=== PATIENT | male | born 1975 | race African-American/Black ===

== ENCOUNTER 2016-11-28 07:54 | Observation (INO) | payer OTHER ==
[2016-11-28 08:21] VITALS: BMI 20.9
[2016-11-28] MEDS ORDERED: SODIUM CHLORIDE 1,000 ML IV STA (09:35)
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
[2016-11-28] MEDS ORDERED: FOLIC ACID INJECTION - 1 MG, THIAMINE HCL 100 MG, MULTIVIT INJECTION ADULT 10 ML in SOD... IVPB ONE (09:56)
[2016-11-28 10:18] LABS: BASOPHIL 0.4 % (0-2.0); EOSINOPHIL 2.7 % (0-4.5); MCHC 32.6 g/dl (32.0-35.9); MEAN CELL VOLUME 82.7 fl (80-96); MEAN PLT VOLUME 7.9 fl (7.5-11.1); NEUTROPHILS 66.5 % (42.8-82.8); PLATELET COUNT 219 K/MM3 (134-434); RDW 19.4 % (11.9-15.9); WHITE BLOOD COUNT 5.8 K/mm3 (4.0-10.0)
[2016-11-28 10:35] LABS: ALBUMIN 3.3 g/dl (3.4-5.0); ANION GAP 8 (8-16); BILIRUBIN,TOTAL 0.2 mg/dL (0.2-1.0); CALCIUM 8.9 mg/dL (8.5-10.1); CO2 31 mmol/L (21-32); COCKROFT - GAULT 116.99; CREATININE 0.7 mg/dL (0.7-1.3); GLUCOSE,RANDOM 88 mg/dL (74-106); SGOT/AST 12 U/L (15-37); SGPT/ALT 22 U/L (12-78); TOT PROT 7.1 g/dl (6.4-8.2)
[2016-11-28 10:36] LABS: ALK PHOS 104 U/L (45-117)
[2016-11-28 11:42] LABS: URINE MARIJUANA THC POSITIVE ng/ml (CUTOFF=50)
[2016-11-28] MEDS ORDERED: chlordiazePOXIDE HCL 25 MG CAPSULE PO ONE (11:45)
[2016-11-28] MEDS ORDERED: chlordiazePOXIDE HCL 25 MG CAPSULE ONE (11:54)
--- NOTE | 2016-11-28 18:45 | HP ---
Admitting History and Physical - Primary Care Physician PCP: Kody Rodrigues - Admission History of Present Illness: 41 year old male with past medical history of ETOH abuse, polysubstance abuse with multiple detox admissions, schizoaffective, presents to the emergency department with a complaint of difficulty ambulating secondary to feet pain starting earlier this morning. Patient was able to get to the bus stop this morning although states it was very difficult and needed assistance from people. He reports a loss of strength in his legs however denies pain in his legs. Patient reports this has happened before in the past 6 months ago when he had an ankle fracture surgery. Denies any recent trauma. He reports some numbness or tingling in his feet. Denies radiating pain into his legs or back. Denies history of heart disease , lung disease and blood disorder. pt was admitted at [facility] he left there - Smoking History Smoking history: Current every day smoker Have you smoked in the past 12 months: Yes Aproximately how many cigarettes per day: 20 - Alcohol/Substance Use Hx Alcohol Use: Yes (SOCIAL) Home Medications - Allergies Allergies/Adverse Reactions: Allergies Allergy/AdvReac Type Severity Reaction Status Date / Time sulfamethoxazole Allergy Severe Swelling Verified 11/28/16 08:15 [From Bactrim] trimethoprim [From Bactrim] Allergy Severe Swelling Verified 11/28/16 08:15 chocolate flavor Allergy Intermediate Rash Verified 11/28/16 08:15 iodine [Iodine] Allergy Unknown UNSPECIFIED Verified 11/28/16 08:15 ALLERGY paroxetine [Paroxetine] Allergy Unknown UNSPECIFIED Verified 11/28/16 08:15 ALLERGY penicillin V [Penicillin V] Allergy Unknown Swelling Verified 11/28/16 08:15 - Home Medications Home Medications: Ambulatory Orders Citalopram Hydrobromide [Celexa -] 20 mg PO DAILY #30 tablet 11/23/16 Perphenazine [Trilafon] 8 mg PO BID #60 tablet 11/23/16 Family Disease History - Family Disease History Family Disease History: Diabetes: Grandparent (HTN.), Sister (one leg amputation ,; Other - Lupus.), Heart Disease: Grandparent, Other: Father ( ALCOHOL; .), Mother (ALCOHOL), Brother (1 - ; Gunshot.), Sister Physical Examination Vital Signs: Vital Signs Temperature 98.8 F 11/28/16 17:42 Pulse Rate 74 11/28/16 17:42 Respiratory Rate 18 11/28/16 17:42 Blood Pressure 128/70 11/28/16 17:42 O2 Sat by Pulse Oximetry (%) 94 L 11/28/16 17:42 Constitutional: Yes: No Distress Neck: Yes: Supple Cardiovascular: Yes: Regular Rate and Rhythm Respiratory: Yes: CTA Bilaterally Gastrointestinal: Yes: Normal Bowel Sounds Extremities: Yes: WNL, Other (feet no redness or swelling) Neurological: Yes: Alert, Oriented Problem List - Problems (1) Left foot pain Assessment/Plan: seems like arthritis will get xray prn tylenol Code(s): M79.672 - PAIN IN LEFT FOOT (2) Advised to contact social work specialist Code(s): [id number] - (3) Alcohol dependence with uncomplicated withdrawal Assessment/Plan: prn ativan/librium Code(s): F10.230 - ALCOHOL DEPENDENCE WITH WITHDRAWAL, UNCOMPLICATED (4) Cocaine dependence Code(s): F14.20 - COCAINE DEPENDENCE, UNCOMPLICATED Qualifiers: Substance use status: uncomplicated Qualified Code(s): F14.20 - Cocaine dependence, uncomplicated (5) Substance induced mood disorder Assessment/Plan: dr meenu holland consult for detox Code(s): F19.94 - OTH PSYCHOACTIVE SUBSTANCE USE, UNSP W MOOD DISORDER (6) Asthma Code(s): J45.909 - UNSPECIFIED ASTHMA, UNCOMPLICATED Qualifiers: Asthma severity: mild intermittent Asthma complication type: uncomplicated Qualified Code(s): J45.20 - Mild intermittent asthma, uncomplicated (7) Marijuana dependence Code(s): F12.20 - CANNABIS DEPENDENCE, UNCOMPLICATED Assessment/Plan Laboratory Tests 11/28/16 11/28/16 11/28/16 09:46 09:46 09:46 WBC 5.8 D RBC 3.54 L Hgb 9.6 L D Hct 29.3 L D MCV 82.7 MCHC 32.6 RDW 19.4 H Plt Count 219 MPV 7.9 D Neutrophils % 66.5 Lymphocytes % 20.7 Monocytes % 9.7 Eosinophils % 2.7 Basophils % 0.4 Retic Count 1.53 H Sodium 143 Potassium 4.4 D Chloride 104 Carbon Dioxide 31 Anion Gap 8 BUN 16 Creatinine 0.7 Creat Clearance w eGFR > 60 Random Glucose 88 Calcium 8.9 Magnesium 2.2 Total Bilirubin 0.2 D AST 12 L D ALT 22 D Alkaline Phosphatase 104 Total Protein 7.1 Albumin 3.3 L Opiates Screen Methadone Screen Barbiturate Screen Phencyclidine Screen Ur Amphetamines Screen MDMA (Ecstasy) Screen Benzodiazepines Screen Cocaine Screen U Marijuana (THC) Screen Alcohol, Quantitative 11/28/16 11/28/16 11:18 11:18 WBC RBC Hgb Hct MCV MCHC RDW Plt Count MPV Neutrophils % Lymphocytes % Monocytes % Eosinophils % Basophils % Retic Count Sodium Potassium Chloride Carbon Dioxide Anion Gap BUN Creatinine Creat Clearance w eGFR Random Glucose Calcium Magnesium Total Bilirubin AST ALT Alkaline Phosphatase Total Protein Albumin Opiates Screen Negative Methadone Screen Negative Barbiturate Screen Negative Phencyclidine Screen Positive Ur Amphetamines Screen Negative MDMA (Ecstasy) Screen Negative Benzodiazepines Screen Positive Cocaine Screen Negative U Marijuana (THC) Screen Positive Alcohol, Quantitative < 5.0
[2016-11-28] MEDS ORDERED: LORAZEPAM CARPU-JECT 2 MG/ML DISP.SYRIN IM PRN (20:43)
[2016-11-28] MEDS: HEPARIN NA (PORCINE) 5,000 UNITS/ML 1ML VIAL SQ SCH (21:28)
[2016-11-28] MEDS: ACETAMINOPHEN 325 MG TABLET (FP) PO PRN (21:32)
[2016-11-29] MEDS: HEPARIN NA (PORCINE) 5,000 UNITS/ML 1ML VIAL SQ SCH ×2 (11:02→21:06)
--- NOTE | 2016-11-29 13:12 | CONSULT ---
Consult Detox [facility] Reason for Current Admission/Consult: alcohol dependence Referred by:: Johnathan Rodrigues MD - History History of Present Illness: 41 y/o man known to us from many previous detox at [facility]. Pt. completed detox on 11/26/16, no overt withdrawal sx. at this time.Pt. was admitted because of pain both feet and inability to stand & walk. - History Source History Provided By: Patient, Medical Record Limitations to Obtaining History: No Limitations - Alcohol/Substance Use Hx Alcohol Use: Yes (SOCIAL) - Current Drug/Alcohol Use Alcohol Route: Oral Frequency: Daily Amount used: 3 beers of 12 oz today Age of first use: 9 Date of Last Use: 11/28/16 - Significant Medical Findings: Laboratory Tests 11/28/16 11/28/16 11/28/16 09:46 09:46 09:46 WBC 5.8 D RBC 3.54 L Hgb 9.6 L D Hct 29.3 L D MCV 82.7 MCHC 32.6 RDW 19.4 H Plt Count 219 MPV 7.9 D Neutrophils % 66.5 Lymphocytes % 20.7 Monocytes % 9.7 Eosinophils % 2.7 Basophils % 0.4 Retic Count 1.53 H Sodium 143 Potassium 4.4 D Chloride 104 Carbon Dioxide 31 Anion Gap 8 BUN 16 Creatinine 0.7 Creat Clearance w eGFR > 60 Random Glucose 88 Calcium 8.9 Magnesium 2.2 Total Bilirubin 0.2 D AST 12 L D ALT 22 D Alkaline Phosphatase 104 Total Protein 7.1 Albumin 3.3 L Opiates Screen Methadone Screen Barbiturate Screen Phencyclidine Screen Ur Amphetamines Screen MDMA (Ecstasy) Screen Benzodiazepines Screen Cocaine Screen U Marijuana (THC) Screen Alcohol, Quantitative 11/28/16 11/28/16 11:18 11:18 WBC RBC Hgb Hct MCV MCHC RDW Plt Count MPV Neutrophils % Lymphocytes % Monocytes % Eosinophils % Basophils % Retic Count Sodium Potassium Chloride Carbon Dioxide Anion Gap BUN Creatinine Creat Clearance w eGFR Random Glucose Calcium Magnesium Total Bilirubin AST ALT Alkaline Phosphatase Total Protein Albumin Opiates Screen Negative Methadone Screen Negative Barbiturate Screen Negative Phencyclidine Screen Positive Ur Amphetamines Screen Negative MDMA (Ecstasy) Screen Negative Benzodiazepines Screen Positive Cocaine Screen Negative U Marijuana (THC) Screen Positive Alcohol, Quantitative < 5.0 labs noted Assessment Plan - Diagnosis (1) Cocaine dependence Status: Acute Qualifiers: Substance use status: uncomplicated Qualified Code(s): F14.20 - Cocaine dependence, uncomplicated (2) Uncomplicated alcohol dependence Status: Acute - Plan Plan: Librium 25mg PRN
--- NOTE | 2016-11-29 13:36 | EKG ---
Test Reason : Blood Pressure : / mmHG Vent. Rate : 079 BPM Atrial Rate : 079 BPM P-R Int : 124 ms QRS Dur : 088 ms QT Int : 352 ms P-R-T Axes : 012 053 035 degrees QTc Int : 403 ms NORMAL SINUS RHYTHM MODERATE VOLTAGE CRITERIA FOR LVH, MAY BE NORMAL VARIANT BORDERLINE ECG WHEN COMPARED WITH ECG OF 22-NOV-2016 19:10, NO SIGNIFICANT CHANGE WAS FOUND Confirmed by TWIN SPEARS, PANCHITO ([id number]) on 11/29/2016 1:36:23 PM Referred By: Confirmed By:PANCHITO MURCIA MD
[2016-11-29] MEDS ORDERED: chlordiazePOXIDE HCL 25 MG CAPSULE PO PRN (14:33)
[2016-11-29] MEDS: ACETAMINOPHEN 325 MG TABLET (FP) PO PRN ×2 (14:44→20:40)
--- NOTE | 2016-11-29 19:13 | PN ---
Progress Note, Physician - Current Medication List Current Medications: Active Medications Acetaminophen (Tylenol -) 650 mg PO Q6H PRN PRN Reason: FEVER OR PAIN Last Admin: 11/29/16 14:44 Dose: 650 mg Chlordiazepoxide HCl (Librium -) 25 mg PO Q4H PRN PRN Reason: WITHDRAWAL(CONT SUBST) Last Admin: 11/29/16 15:29 Dose: 25 mg Heparin Sodium (Porcine) (Heparin -) 5,000 unit SQ BID KAREN Last Admin: 11/29/16 11:02 Dose: 5,000 unit Lorazepam (Ativan Injection -) 1 mg IM Q6H PRN PRN Reason: AGITATION - Objective Vital Signs: Vital Signs Temperature 98.3 F 11/29/16 18:00 Pulse Rate 79 11/29/16 18:00 Respiratory Rate 18 11/29/16 18:00 Blood Pressure 132/72 11/29/16 18:00 O2 Sat by Pulse Oximetry (%) 97 11/29/16 16:00 Constitutional: Yes: No Distress HENT: Yes: Atraumatic Neck: Yes: Supple Cardiovascular: Yes: Regular Rate and Rhythm Respiratory: Yes: CTA Bilaterally Gastrointestinal: Yes: Normal Bowel Sounds Extremities: Yes: WNL Neurological: Yes: Alert Problem List - Problems (1) Left foot pain Assessment/Plan: seems like arthritis will get xray prn tylenol Code(s): M79.672 - PAIN IN LEFT FOOT (2) Advised to contact healthcare social worker Code(s): [id number] - (3) Alcohol dependence with uncomplicated withdrawal Code(s): F10.230 - ALCOHOL DEPENDENCE WITH WITHDRAWAL, UNCOMPLICATED (4) Cocaine dependence Code(s): F14.20 - COCAINE DEPENDENCE, UNCOMPLICATED Qualifiers: Substance use status: uncomplicated Qualified Code(s): F14.20 - Cocaine dependence, uncomplicated (5) Substance induced mood disorder Assessment/Plan: dr meenu holland consult for detox Code(s): F19.94 - OTH PSYCHOACTIVE SUBSTANCE USE, UNSP W MOOD DISORDER (6) Asthma Code(s): J45.909 - UNSPECIFIED ASTHMA, UNCOMPLICATED Qualifiers: Asthma severity: mild intermittent Asthma complication type: uncomplicated Qualified Code(s): J45.20 - Mild intermittent asthma, uncomplicated (7) Marijuana dependence Code(s): F12.20 - CANNABIS DEPENDENCE, UNCOMPLICATED
[2016-11-30] MEDS: HEPARIN NA (PORCINE) 5,000 UNITS/ML 1ML VIAL SQ SCH ×2 (10:51→22:00)
[2016-11-30] MEDS: ACETAMINOPHEN 325 MG TABLET (FP) PO PRN ×2 (10:51→20:14)
--- NOTE | 2016-11-30 19:22 | PN ---
Progress Note, Physician - Current Medication List Current Medications: Active Medications Acetaminophen (Tylenol -) 650 mg PO Q6H PRN PRN Reason: FEVER OR PAIN Last Admin: 11/30/16 10:51 Dose: 650 mg Heparin Sodium (Porcine) (Heparin -) 5,000 unit SQ BID KAREN Last Admin: 11/30/16 10:51 Dose: 5,000 unit Lorazepam (Ativan Injection -) 1 mg IM Q6H PRN PRN Reason: AGITATION - Objective Vital Signs: Vital Signs Temperature 97.7 F 11/30/16 18:00 Pulse Rate 73 11/30/16 18:00 Respiratory Rate 18 11/30/16 18:00 Blood Pressure 118/70 11/30/16 18:00 O2 Sat by Pulse Oximetry (%) 100 11/30/16 16:00 Constitutional: Yes: No Distress HENT: Yes: Atraumatic Neck: Yes: Supple Cardiovascular: Yes: Regular Rate and Rhythm Respiratory: Yes: CTA Bilaterally Gastrointestinal: Yes: Normal Bowel Sounds Extremities: Yes: WNL Neurological: Yes: Alert, Oriented Problem List - Problems (1) Left foot pain Assessment/Plan: seems like arthritis foot xray ...done no acute changes prn tylenol Code(s): M79.672 - PAIN IN LEFT FOOT (2) Advised to contact psychosocial rehabilitation counselor Code(s): [id number] - (3) Alcohol dependence with uncomplicated withdrawal Assessment/Plan: prn ativan/librium Code(s): F10.230 - ALCOHOL DEPENDENCE WITH WITHDRAWAL, UNCOMPLICATED (4) Cocaine dependence Code(s): F14.20 - COCAINE DEPENDENCE, UNCOMPLICATED Qualifiers: Substance use status: uncomplicated Qualified Code(s): F14.20 - Cocaine dependence, uncomplicated (5) Substance induced mood disorder Code(s): F19.94 - OTH PSYCHOACTIVE SUBSTANCE USE, UNSP W MOOD DISORDER (6) Asthma Code(s): J45.909 - UNSPECIFIED ASTHMA, UNCOMPLICATED Qualifiers: Asthma severity: mild intermittent Asthma complication type: uncomplicated Qualified Code(s): J45.20 - Mild intermittent asthma, uncomplicated (7) Marijuana dependence Code(s): F12.20 - CANNABIS DEPENDENCE, UNCOMPLICATED Assessment/Plan pt can be dc home in am
[2016-12-01 11:02] VITALS: BP 127/76; PULSE 79; TEMP 97.7
--- NOTE | 2016-12-01 19:29 | DS ---
Physical Examination Vital Signs: Vital Signs Temperature 97.7 F 12/01/16 08:00 Pulse Rate 79 12/01/16 08:00 Respiratory Rate 18 12/01/16 08:00 Blood Pressure 127/76 12/01/16 08:00 O2 Sat by Pulse Oximetry (%) 99 12/01/16 08:00 Discharge Summary Reason For Visit: LEFT FOOT PAIN Condition: Stable - Instructions Diet, Activity, Other Instructions: pt need to see his doctor Disposition: HOME - Home Medications Comprehensive Discharge Medication List: Ambulatory Orders Citalopram Hydrobromide [Celexa -] 20 mg PO DAILY #30 tablet 11/23/16 Perphenazine [Trilafon] 8 mg PO BID #60 tablet 11/23/16 [place]
== END 2016-12-01 10:00 | disposition home or self-care (01) ==
LOC: JER 07:54 → JERBED 11:39 → UNDOADMOB 11:39 → INTOOBSV 11:39 → JERBED 15:37 → J7W 15:37 → JERBED 20:42 → J7W 20:42
PROVIDERS: ADMIT Internal Medicine; ATTEND Internal Medicine
PROC: 3E033GC Introduction of Other Therapeutic Substance into Peripheral Vein, Percutaneous Approach (ICD-10-PCS; principal; 2016-11-28)
PROC: 3E0337Z Introduction of Electrolytic and Water Balance Substance into Peripheral Vein, Percutaneous Approach (ICD-10-PCS; 2016-11-28)
PROC: 3E013GC Introduction of Other Therapeutic Substance into Subcutaneous Tissue, Percutaneous Approach (ICD-10-PCS; 2016-11-28)
PROC: 3E023GC Introduction of Other Therapeutic Substance into Muscle, Percutaneous Approach (ICD-10-PCS; 2016-11-28)
DX: M79.672 Pain in left foot (principal); M79.671 Pain in right foot; R26.2 Difficulty in walking, not elsewhere classified; F10.20 Alcohol dependence, uncomplicated; F14.20 Cocaine dependence, uncomplicated; F12.20 Cannabis dependence, uncomplicated; F17.210 Nicotine dependence, cigarettes, uncomplicated; F19.24 Other psychoactive substance dependence with psychoactive substance-induced mood disorder; F25.9 Schizoaffective disorder, unspecified; J45.20 Mild intermittent asthma, uncomplicated; D57.1 Sickle-cell disease without crisis
CPT/HCPCS: 36415; 71010-TC; 73610-TC-LT; 73610-TC-RT; 73630-TC-LT; 73630-TC-RT; 80053; 80307; 83735; 85025; 85044; 93005; 93010; 97116-GP; 97161-GP; 99283-25; G0378; J1644

== ENCOUNTER 2017-03-15 02:51 | Emergency (ER) | payer OTHER ==
[2017-03-15 03:34] VITALS: BMI 30.2
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
[2017-03-15] MEDS ORDERED: PANTOPRAZOLE 40 MG TABLET (FP) PO ONE (03:43)
[2017-03-15] MEDS ORDERED: ONDANSETRON *ODT* 4 MG TABLET SL ONE (03:43)
[2017-03-15] MEDS ORDERED: ONDANSETRON *ODT* 4 MG TABLET ONE (03:53)
[2017-03-15] MEDS ORDERED: PANTOPRAZOLE 40 MG TABLET (FP) ONE (03:53)
[2017-03-15 04:19] LABS: BASOPHIL 0.8 % (0-2.0); EOSINOPHIL 6.2 % (0-4.5); MCH 26.2 pg (25.7-33.7); MCHC 32.1 g/dl (32.0-35.9); MEAN CELL VOLUME 81.7 fl (80-96); MEAN PLT VOLUME 7.9 fl (7.5-11.1); NEUTROPHILS 48.4 % (42.8-82.8); PLATELET COUNT 195 K/MM3 (134-434); RDW 19.8 % (11.9-15.9); WHITE BLOOD COUNT 5.2 K/mm3 (4.0-10.0)
[2017-03-15 04:51] LABS: ALBUMIN 3.2 g/dl (3.4-5.0); AMYLASE 82 U/L (25-115); ANION GAP 9 (8-16); BILIRUBIN,TOTAL 0.2 mg/dL (0.2-1.0); CALCIUM 8.2 mg/dL (8.5-10.1); CO2 32 mmol/L (21-32); CREATININE 0.6 mg/dL (0.7-1.3); GLUCOSE,RANDOM 103 mg/dL (74-106); MAGNESIUM 2.1 mg/dL (1.8-2.4); SGOT/AST 16 U/L (15-37); SGPT/ALT 17 U/L (12-78); TOT PROT 6.6 g/dl (6.4-8.2)
[2017-03-15 04:53] LABS: ALK PHOS 111 U/L (45-117)
[2017-03-15] MEDS ORDERED: POTASSIUM CHLORIDE TABS 20 MEQ TABLET.ER (FP) PO ONE (04:57)
[2017-03-15] MEDS ORDERED: IBUPROFEN 400 MG TABLET (FP) PO ONE ×2 (04:58→05:16)
[2017-03-15] MEDS ORDERED: POTASSIUM CHLORIDE ORAL LIQUID 20 MEQ/15 ML ONE (05:19)
[2017-03-15 06:38] VITALS: BP 130/80; PULSE 81; TEMP 99
== END 2017-03-15 06:39 | disposition home or self-care (01) ==
LOC: JER 02:51
DX: M79.672 Pain in left foot (principal); J45.909 Unspecified asthma, uncomplicated; F17.210 Nicotine dependence, cigarettes, uncomplicated
CPT/HCPCS: 36415; 80053; 80307; 82150; 83735; 83880; 85025; 99282-25

== ENCOUNTER 2021-03-18 22:00 | Emergency (ER) | payer OTHER ==
[2021-03-18 22:28] VITALS: BMI 27.4
[2021-03-19 09:34] VITALS: BP 115/71; PULSE 69; TEMP 98
== END 2021-03-19 09:55 | disposition home or self-care (01) ==
LOC: JER 22:00
DX: F14.29 Cocaine dependence with unspecified cocaine-induced disorder (principal)
CPT/HCPCS: 99283-25

== ENCOUNTER 2021-03-19 10:53 | Inpatient (IN) | payer OTHER ==
[2021-03-19 11:09] VITALS: BMI 21.4
[2021-03-19] MEDS ORDERED: ACETAMINOPHEN 325 MG TABLET (FP) PO PRN ×2 (11:39)
[2021-03-19] MEDS ORDERED: MAG HYDROX/AL HYDROX/SIMETH 30 ML UNIT-DOSE CUP PO PRN (11:39)
[2021-03-19] MEDS ORDERED: MAGNESIUM HYDROX 2400MG/30ML ORAL SUSPENSION 30 ML CUP PO PRN (11:39)
[2021-03-19] MEDS ORDERED: ONDANSETRON *ODT* 4 MG TABLET SL PRN (11:39)
[2021-03-19] MEDS ORDERED: MENTHOL/PHENOL 1 EACH UD MM PRN (11:39)
[2021-03-19] MEDS ORDERED: IBUPROFEN 400 MG TABLET (FP) PO PRN (11:39)
[2021-03-19] MEDS ORDERED: BISMUTH SUBSALICYLATE 262 MG/15 ML BTL PO PRN (11:39)
[2021-03-19] MEDS ORDERED: NICOTINE 10 MG CARTRIDGE (INHALER) IH PRN (11:39)
[2021-03-19] MEDS ORDERED: METHOCARBAMOL 500 MG TABLET PO PRN (11:39)
[2021-03-19] MEDS ORDERED: diazePAM 5 MG TABLET PO PRN (11:39)
[2021-03-19] MEDS ORDERED: MAGNESIUM CITRATE 300 ML BOTTLE PO PRN (11:39)
[2021-03-19] MEDS ORDERED: HYDROCORTISONE 0.5% TOPICAL OINTMENT TUBE TP PRN (11:42)
[2021-03-19] MEDS: hydrOXYzine PAMOATE 25 MG CAPSULE (FP) PO SCH ×3 (13:28→22:22)
[2021-03-19] MEDS: PRENATAL VITAMINS W/ FOLIC ACID TABLET (FP) PO SCH (13:28)
[2021-03-19] MEDS: diazePAM 5 MG TABLET PO SCH ×3 (13:29→22:23)
[2021-03-19 14:46] LABS: HEMOGLOBIN 11.6 GM/dL (11.7-16.9); MCH 29.9 pg (25.7-33.7); MCHC 33.1 g/dl (32.0-35.9); MEAN CELL VOLUME 90.1 fl (80-96); MEAN PLT VOLUME 10.2 fl (7.5-11.1); PLATELET COUNT 158 10^3/uL (134-434); RBC 3.89 M/mm3 (4.00-5.60); RDW 16.3 % (11.9-15.9); WHITE BLOOD COUNT 5.4 K/mm3 (4.0-10.0)
[2021-03-19 14:53] LABS: ALBUMIN 3.7 g/dl (3.4-5.0); BLOOD UREA NITROGEN 12.7 mg/dL (7-18); CALCIUM 8.9 mg/dL (8.5-10.1)
[2021-03-19 14:56] LABS: CREATININE 0.7 mg/dL (0.55-1.3)
[2021-03-19 14:58] LABS: BILIRUBIN,TOTAL 0.2 mg/dL (0.2-1); TOT PROT 7.2 g/dl (6.4-8.2)
[2021-03-19] MEDS ORDERED: HYDROCORTISONE 0.5% TOPICAL CREAM 30 GM TUBE TP PRN (15:17)
[2021-03-19] MEDS: THIAMINE HCL 100 MG TABLET (FP) PO SCH (22:22)
[2021-03-19] MEDS: HALOPERIDOL 5 MG TABLET PO SCH (22:23)
[2021-03-19] MEDS: TRIAMCINOLONE ACET 0.5% CREAM 15 GM TUBE TP SCH (22:23)
[2021-03-19] MEDS: MELATONIN 5 MG TABLETS PO SCH (22:24)
[2021-03-20] MEDS: hydrOXYzine PAMOATE 25 MG CAPSULE (FP) PO SCH ×5 (06:27→21:54)
[2021-03-20] MEDS: diazePAM 5 MG TABLET PO SCH ×4 (06:27→22:31)
[2021-03-20] MEDS: ASPIRIN 81 MG CHEWABLE TABLETS PO SCH (10:34)
[2021-03-20] MEDS: PRENATAL VITAMINS W/ FOLIC ACID TABLET (FP) PO SCH (10:34)
[2021-03-20] MEDS: TRIAMCINOLONE ACET 0.5% CREAM 15 GM TUBE TP SCH ×2 (10:35→21:52)
[2021-03-20] MEDS: THIAMINE HCL 100 MG TABLET (FP) PO SCH (21:52)
[2021-03-20] MEDS: HALOPERIDOL 5 MG TABLET PO SCH (21:52)
[2021-03-20] MEDS: MELATONIN 5 MG TABLETS PO SCH (21:53)
[2021-03-21] MEDS: hydrOXYzine PAMOATE 25 MG CAPSULE (FP) PO SCH ×5 (05:23→22:47)
[2021-03-21] MEDS: diazePAM 5 MG TABLET PO SCH ×3 (05:23→22:14)
[2021-03-21] MEDS: PRENATAL VITAMINS W/ FOLIC ACID TABLET (FP) PO SCH (10:30)
[2021-03-21] MEDS: ASPIRIN 81 MG CHEWABLE TABLETS PO SCH (10:30)
[2021-03-21] MEDS: TRIAMCINOLONE ACET 0.5% CREAM 15 GM TUBE TP SCH ×2 (10:31→22:16)
[2021-03-21] MEDS ORDERED: diazePAM 5 MG TABLET PO PRN (13:23)
[2021-03-21] MEDS: THIAMINE HCL 100 MG TABLET (FP) PO SCH (22:14)
[2021-03-21] MEDS: HALOPERIDOL 5 MG TABLET PO SCH (22:14)
[2021-03-21] MEDS: MELATONIN 5 MG TABLETS PO SCH (22:47)
[2021-03-22] MEDS: diazePAM 5 MG TABLET PO SCH ×2 (05:55→19:08)
[2021-03-22] MEDS: hydrOXYzine PAMOATE 25 MG CAPSULE (FP) PO SCH ×4 (05:55→19:09)
[2021-03-22] MEDS: ASPIRIN 81 MG CHEWABLE TABLETS PO SCH (10:42)
[2021-03-22] MEDS: PRENATAL VITAMINS W/ FOLIC ACID TABLET (FP) PO SCH (10:42)
[2021-03-22] MEDS: TRIAMCINOLONE ACET 0.5% CREAM 15 GM TUBE TP SCH (10:43)
[2021-03-22 17:26] VITALS: BP 118/73; PULSE 78; TEMP 97.7
[2021-03-23] MEDS ORDERED: diazePAM 5 MG TABLET PO ONE (06:00)
== END 2021-03-22 20:08 | disposition home or self-care (01) | DRG 774 ==
LOC: YASAS 10:53 → Y6N 12:49
PROVIDERS: ADMIT Allergy & Immunology; ATTEND Allergy & Immunology
PROC: HZ2ZZZZ Detoxification Services for Substance Abuse Treatment (ICD-10-PCS; principal; 2021-03-19)
DX: F10.230 Alcohol dependence with withdrawal, uncomplicated (principal); F14.20 Cocaine dependence, uncomplicated; F12.20 Cannabis dependence, uncomplicated; F17.210 Nicotine dependence, cigarettes, uncomplicated; F25.0 Schizoaffective disorder, bipolar type; F19.24 Other psychoactive substance dependence with psychoactive substance-induced mood disorder; F19.282 Other psychoactive substance dependence with psychoactive substance-induced sleep disorder; I10 Essential (primary) hypertension; J45.20 Mild intermittent asthma, uncomplicated; Z91.018 Allergy to other foods; Z88.0 Allergy status to penicillin; Z88.1 Allergy status to other antibiotic agents; Z88.2 Allergy status to sulfonamides; Z88.8 Allergy status to other drugs, medicaments and biological substances; Z62.810 Personal history of physical and sexual abuse in childhood; Z56.0 Unemployment, unspecified
CPT/HCPCS: 36415; 80053; 82962; 85027; 86780

== ENCOUNTER 2021-04-23 17:21 | Inpatient (IN) | payer OTHER ==
[2021-04-23 20:13] VITALS: BMI 25.7
[2021-04-23] MEDS ORDERED: NICOTINE POLACRILEX 2 MG GUM BC PRN (20:34)
[2021-04-23] MEDS ORDERED: P-EPHED 60MG/TRIPROLIDI 2.5MG TABLET PO PRN (20:34)
[2021-04-23] MEDS ORDERED: ACETAMINOPHEN 325 MG TABLET (FP) PO PRN (20:34)
[2021-04-23] MEDS ORDERED: MAG HYDROX/AL HYDROX/SIMETH 30 ML UNIT-DOSE CUP PO PRN (20:34)
[2021-04-23] MEDS ORDERED: hydrOXYzine PAMOATE 25 MG CAPSULE (FP) PO PRN (20:34)
[2021-04-23] MEDS ORDERED: LOPERAMIDE HCL 2 MG CAPSULE PO PRN (20:34)
[2021-04-23] MEDS ORDERED: guaiFENesin 200 MG/10 ML 10 ML UNIT-DOSE CUPS PO PRN (20:34)
[2021-04-23] MEDS ORDERED: MAGNESIUM CITRATE 300 ML BOTTLE PO PRN (20:34)
[2021-04-23] MEDS ORDERED: IBUPROFEN 400 MG TABLET (FP) PO PRN (20:34)
[2021-04-23] MEDS ORDERED: MAGNESIUM HYDROX 2400MG/30ML ORAL SUSPENSION 30 ML CUP PO PRN (20:34)
[2021-04-24] MEDS: BACITRACIN 15 GM TUBE TOPICAL OINTMENT TP SCH ×3 (07:14→21:18)
[2021-04-24] MEDS: MELATONIN 5 MG TABLETS PO SCH ×2 (07:14→21:18)
[2021-04-24] MEDS: THIAMINE HCL 100 MG TABLET (FP) PO SCH ×2 (07:15→21:19)
[2021-04-24] MEDS: PRENATAL VITAMINS W/ FOLIC ACID TABLET (FP) PO SCH (09:40)
[2021-04-24] MEDS: NICOTINE 10 MG CARTRIDGE (INHALER) IH PRN (09:40)
[2021-04-24] MEDS: ASPIRIN 81 MG CHEWABLE TABLETS PO SCH (09:42)
[2021-04-24 15:15] LABS: ALBUMIN 3.4 g/dl (3.4-5.0); BLOOD UREA NITROGEN 13.7 mg/dL (7-18); CALCIUM 8.8 mg/dL (8.5-10.1)
[2021-04-24 15:19] LABS: CREATININE 0.7 mg/dL (0.55-1.3)
[2021-04-24 15:20] LABS: BILIRUBIN,TOTAL 0.2 mg/dL (0.2-1)
[2021-04-24 15:24] LABS: HEMATOCRIT 36.3 % (35.4-49); HEMOGLOBIN 12.3 GM/dL (11.7-16.9); MCH 30.8 pg (25.7-33.7); MCHC 33.8 g/dl (32.0-35.9); MEAN CELL VOLUME 90.9 fl (80-96); MEAN PLT VOLUME 9.2 fl (7.5-11.1); PLATELET COUNT 210 10^3/uL (134-434); RBC 3.99 M/mm3 (4.00-5.60); RDW 15.8 % (11.9-15.9)
[2021-04-25] MEDS ORDERED: PT OWN MED DRAWER 7, Y5N ONE ×2 (08:42→19:15)
[2021-04-25] MEDS: ASPIRIN 81 MG CHEWABLE TABLETS PO SCH (10:29)
[2021-04-25] MEDS: PRENATAL VITAMINS W/ FOLIC ACID TABLET (FP) PO SCH (10:30)
[2021-04-25] MEDS: BACITRACIN 15 GM TUBE TOPICAL OINTMENT TP SCH (10:30)
[2021-04-25] MEDS: MELATONIN 5 MG TABLETS PO SCH (21:41)
[2021-04-25] MEDS: THIAMINE HCL 100 MG TABLET (FP) PO SCH (21:42)
[2021-04-26] MEDS: BACITRACIN 0.9 GM PACKET TP SCH ×2 (11:41→21:19)
[2021-04-26] MEDS: ASPIRIN 81 MG CHEWABLE TABLETS PO SCH (11:41)
[2021-04-26] MEDS: PRENATAL VITAMINS W/ FOLIC ACID TABLET (FP) PO SCH (11:43)
[2021-04-26] MEDS: BACITRACIN 15 GM TUBE TOPICAL OINTMENT TP SCH (17:49)
[2021-04-26 18:44] LABS: PH,URINE 7.5 (5.0-8.0); URINE APPEARANCE CLEAR; URINE BILIRUBIN NEGATIVE (NEGATIVE); URINE COLOR YELLOW; URINE GLUCOSE (UA) TRACE (NEGATIVE); URINE KETONE NEGATIVE (NEGATIVE); URINE LEUK ESTERASE NEGATIVE (NEGATIVE); URINE NITRITE NEGATIVE (NEGATIVE); URINE PROTEIN NEGATIVE (NEGATIVE)
[2021-04-26] MEDS ORDERED: PT OWN MED DRAWER 7, Y5N ONE (20:41)
[2021-04-26] MEDS: THIAMINE HCL 100 MG TABLET (FP) PO SCH (21:19)
[2021-04-26] MEDS: HALOPERIDOL 5 MG TABLET PO SCH (21:19)
[2021-04-26] MEDS: MELATONIN 5 MG TABLETS PO SCH (21:19)
[2021-04-27] MEDS ORDERED: PT OWN MED DRAWER 7, Y5N ONE (08:45)
[2021-04-27] MEDS: ASPIRIN 81 MG CHEWABLE TABLETS PO SCH (10:38)
[2021-04-27] MEDS: BACITRACIN 0.9 GM PACKET TP SCH ×2 (10:38→21:16)
[2021-04-27] MEDS: PRENATAL VITAMINS W/ FOLIC ACID TABLET (FP) PO SCH (10:38)
[2021-04-27] MEDS: THIAMINE HCL 100 MG TABLET (FP) PO SCH (21:16)
[2021-04-27] MEDS: HALOPERIDOL 5 MG TABLET PO SCH (21:17)
[2021-04-27] MEDS: MELATONIN 5 MG TABLETS PO SCH (21:17)
[2021-04-28] MEDS: PRENATAL VITAMINS W/ FOLIC ACID TABLET (FP) PO SCH (11:00)
[2021-04-28] MEDS: ASPIRIN 81 MG CHEWABLE TABLETS PO SCH (11:00)
[2021-04-28] MEDS: BACITRACIN 0.9 GM PACKET TP SCH ×2 (11:00→21:21)
[2021-04-28] MEDS: ONDANSETRON *ODT* 4 MG TABLET SL PRN (14:13)
[2021-04-28] MEDS: THIAMINE HCL 100 MG TABLET (FP) PO SCH (21:21)
[2021-04-28] MEDS: HALOPERIDOL 5 MG TABLET PO SCH (21:21)
[2021-04-28] MEDS: MELATONIN 5 MG TABLETS PO SCH (21:21)
[2021-04-29] MEDS: BACITRACIN 0.9 GM PACKET TP SCH ×2 (10:00→21:39)
[2021-04-29] MEDS: ASPIRIN 81 MG CHEWABLE TABLETS PO SCH (10:00)
[2021-04-29] MEDS: PRENATAL VITAMINS W/ FOLIC ACID TABLET (FP) PO SCH (10:00)
[2021-04-29] MEDS: THIAMINE HCL 100 MG TABLET (FP) PO SCH (21:39)
[2021-04-29] MEDS: HALOPERIDOL 5 MG TABLET PO SCH (21:39)
[2021-04-29] MEDS ORDERED: PT OWN MED DRAWER 7, Y5N ONE (21:40)
[2021-04-29] MEDS: MELATONIN 5 MG TABLETS PO SCH (21:41)
[2021-04-30] MEDS: ASPIRIN 81 MG CHEWABLE TABLETS PO SCH (11:50)
[2021-04-30] MEDS: BACITRACIN 0.9 GM PACKET TP SCH ×2 (11:50→22:03)
[2021-04-30] MEDS: PRENATAL VITAMINS W/ FOLIC ACID TABLET (FP) PO SCH (11:50)
[2021-04-30] MEDS: ONDANSETRON *ODT* 4 MG TABLET SL PRN (17:45)
[2021-04-30] MEDS: THIAMINE HCL 100 MG TABLET (FP) PO SCH (22:02)
[2021-04-30] MEDS: MELATONIN 5 MG TABLETS PO SCH (22:02)
[2021-04-30] MEDS: HALOPERIDOL 5 MG TABLET PO SCH (22:02)
[2021-05-01] MEDS: ASPIRIN 81 MG CHEWABLE TABLETS PO SCH (11:11)
[2021-05-01] MEDS: PRENATAL VITAMINS W/ FOLIC ACID TABLET (FP) PO SCH (11:12)
[2021-05-01] MEDS: BACITRACIN 0.9 GM PACKET TP SCH ×2 (11:12→22:08)
[2021-05-01] MEDS ORDERED: TRIMETHOBENZAMIDE HCL 200MG/2ML INJ IM PRN (18:54)
[2021-05-01] MEDS: P-EPHED 60MG/TRIPROLIDI 2.5MG TABLET PO SCH (22:07)
[2021-05-01] MEDS: THIAMINE HCL 100 MG TABLET (FP) PO SCH (22:39)
[2021-05-01] MEDS: HALOPERIDOL 5 MG TABLET PO SCH (22:39)
[2021-05-01] MEDS: MELATONIN 5 MG TABLETS PO SCH (22:40)
[2021-05-01] MEDS: FAMOTIDINE 20 MG TABLET PO SCH (22:41)
[2021-05-02] MEDS: P-EPHED 60MG/TRIPROLIDI 2.5MG TABLET PO SCH ×3 (06:28→18:10)
[2021-05-02] MEDS: BACITRACIN 0.9 GM PACKET TP SCH ×2 (10:31→22:29)
[2021-05-02] MEDS: ASPIRIN 81 MG CHEWABLE TABLETS PO SCH (10:31)
[2021-05-02] MEDS: PRENATAL VITAMINS W/ FOLIC ACID TABLET (FP) PO SCH (10:32)
[2021-05-02] MEDS: FAMOTIDINE 20 MG TABLET PO SCH ×2 (10:32→22:29)
[2021-05-02] MEDS: MELATONIN 5 MG TABLETS PO SCH (22:29)
[2021-05-02] MEDS: THIAMINE HCL 100 MG TABLET (FP) PO SCH (22:29)
[2021-05-02] MEDS: HALOPERIDOL 5 MG TABLET PO SCH (22:29)
[2021-05-03] MEDS: P-EPHED 60MG/TRIPROLIDI 2.5MG TABLET PO SCH ×3 (06:07→19:35)
[2021-05-03] MEDS: ONDANSETRON *ODT* 4 MG TABLET SL PRN (12:03)
[2021-05-03] MEDS: BACITRACIN 0.9 GM PACKET TP SCH ×2 (12:03→21:12)
[2021-05-03] MEDS: FAMOTIDINE 20 MG TABLET PO SCH ×2 (12:03→21:13)
[2021-05-03] MEDS: ASPIRIN 81 MG CHEWABLE TABLETS PO SCH (12:03)
[2021-05-03] MEDS: PRENATAL VITAMINS W/ FOLIC ACID TABLET (FP) PO SCH (12:04)
[2021-05-03] MEDS: THIAMINE HCL 100 MG TABLET (FP) PO SCH (21:13)
[2021-05-03] MEDS: HALOPERIDOL 5 MG TABLET PO SCH (21:13)
[2021-05-03] MEDS: MELATONIN 5 MG TABLETS PO SCH (21:13)
[2021-05-03] MEDS: NICOTINE 10 MG CARTRIDGE (INHALER) IH PRN (21:14)
[2021-05-04] MEDS: P-EPHED 60MG/TRIPROLIDI 2.5MG TABLET PO SCH ×2 (06:04→10:27)
[2021-05-04] MEDS: BACITRACIN 0.9 GM PACKET TP SCH ×2 (09:43→21:10)
[2021-05-04] MEDS: PRENATAL VITAMINS W/ FOLIC ACID TABLET (FP) PO SCH (09:43)
[2021-05-04] MEDS: FAMOTIDINE 20 MG TABLET PO SCH ×2 (09:43→21:09)
[2021-05-04] MEDS: ASPIRIN 81 MG CHEWABLE TABLETS PO SCH (09:43)
[2021-05-04] MEDS: NICOTINE 10 MG CARTRIDGE (INHALER) IH PRN (10:27)
[2021-05-04] MEDS: MELATONIN 5 MG TABLETS PO SCH (21:10)
[2021-05-04] MEDS: HALOPERIDOL 5 MG TABLET PO SCH (21:10)
[2021-05-04] MEDS: THIAMINE HCL 100 MG TABLET (FP) PO SCH (21:10)
[2021-05-05] MEDS: PRENATAL VITAMINS W/ FOLIC ACID TABLET (FP) PO SCH (11:01)
[2021-05-05] MEDS: FAMOTIDINE 20 MG TABLET PO SCH ×2 (11:01→22:10)
[2021-05-05] MEDS: ASPIRIN 81 MG CHEWABLE TABLETS PO SCH (11:01)
[2021-05-05] MEDS: BACITRACIN 0.9 GM PACKET TP SCH ×2 (11:01→22:10)
[2021-05-05] MEDS: NICOTINE 10 MG CARTRIDGE (INHALER) IH PRN (16:19)
[2021-05-05] MEDS ORDERED: P-EPHED 60MG/TRIPROLIDI 2.5MG TABLET PO ONE (17:20)
[2021-05-05] MEDS: HALOPERIDOL 5 MG TABLET PO SCH (22:10)
[2021-05-05] MEDS: THIAMINE HCL 100 MG TABLET (FP) PO SCH (22:10)
[2021-05-05] MEDS: MELATONIN 5 MG TABLETS PO SCH (22:10)
[2021-05-06] MEDS: ASPIRIN 81 MG CHEWABLE TABLETS PO SCH (10:51)
[2021-05-06] MEDS: FAMOTIDINE 20 MG TABLET PO SCH ×2 (10:51→23:14)
[2021-05-06] MEDS: BACITRACIN 0.9 GM PACKET TP SCH ×2 (10:51→23:13)
[2021-05-06] MEDS: PRENATAL VITAMINS W/ FOLIC ACID TABLET (FP) PO SCH (10:52)
[2021-05-06] MEDS: MELATONIN 5 MG TABLETS PO SCH (23:13)
[2021-05-06] MEDS: HALOPERIDOL 5 MG TABLET PO SCH (23:13)
[2021-05-06] MEDS: THIAMINE HCL 100 MG TABLET (FP) PO SCH (23:14)
[2021-05-07 07:11] VITALS: TEMP 96.7
[2021-05-07] MEDS: ASPIRIN 81 MG CHEWABLE TABLETS PO SCH (09:22)
[2021-05-07] MEDS: PRENATAL VITAMINS W/ FOLIC ACID TABLET (FP) PO SCH (09:22)
[2021-05-07] MEDS: FAMOTIDINE 20 MG TABLET PO SCH (09:22)
[2021-05-07] MEDS: BACITRACIN 0.9 GM PACKET TP SCH (09:22)
[2021-05-07 11:22] VITALS: BP 135/82; PULSE 95
== END 2021-05-07 09:40 | disposition home or self-care (01) | DRG 772 ==
LOC: YASAS 17:21 → Y5N 04-24 01:55
PROVIDERS: ADMIT Allergy & Immunology; ATTEND Allergy & Immunology
PROC: HZ42ZZZ Group Counseling for Substance Abuse Treatment, Cognitive-Behavioral (ICD-10-PCS; principal; 2021-04-24)
DX: F10.20 Alcohol dependence, uncomplicated (principal); F14.20 Cocaine dependence, uncomplicated; F12.20 Cannabis dependence, uncomplicated; F17.210 Nicotine dependence, cigarettes, uncomplicated; F19.282 Other psychoactive substance dependence with psychoactive substance-induced sleep disorder; F19.24 Other psychoactive substance dependence with psychoactive substance-induced mood disorder; F25.9 Schizoaffective disorder, unspecified; I10 Essential (primary) hypertension; J45.20 Mild intermittent asthma, uncomplicated; R63.4 Abnormal weight loss; Z68.25 Body mass index [BMI] 25.0-25.9, adult; Z98.890 Other specified postprocedural states; Z88.0 Allergy status to penicillin; Z88.2 Allergy status to sulfonamides; Z88.8 Allergy status to other drugs, medicaments and biological substances
CPT/HCPCS: 36415; 80053; 81003; 85027; 86780; C9803; Q0162; U0003; U0005

== ENCOUNTER 2021-06-30 00:52 | Inpatient (IN) | payer OTHER ==
[2021-06-30] MEDS ORDERED: DICYCLOMINE HCL 10 MG CAPSULE PO PRN (01:41)
[2021-06-30] MEDS ORDERED: hydrOXYzine PAMOATE 25 MG CAPSULE (FP) PO PRN (01:41)
[2021-06-30] MEDS ORDERED: MENTHOL/PHENOL 1 EACH UD MM PRN (01:41)
[2021-06-30] MEDS ORDERED: ACETAMINOPHEN 325 MG TABLET (FP) PO PRN ×2 (01:41)
[2021-06-30] MEDS ORDERED: MAGNESIUM CITRATE 300 ML BOTTLE PO PRN (01:41)
[2021-06-30] MEDS ORDERED: BISMUTH SUBSALICYLATE 524 MG/30 ML PO PRN (01:41)
[2021-06-30] MEDS ORDERED: ONDANSETRON *ODT* 4 MG TABLET SL PRN (01:41)
[2021-06-30] MEDS ORDERED: MAGNESIUM HYDROX 2400MG/30ML ORAL SUSPENSION 30 ML CUP PO PRN (01:41)
[2021-06-30] MEDS ORDERED: NALOXONE (NARCAN) HCL 4 MG/0.1 ML SPRAY NS PRN (01:41)
[2021-06-30] MEDS ORDERED: MAG HYDROX/AL HYDROX/SIMETH 30 ML UNIT-DOSE CUP PO PRN (01:41)
[2021-06-30] MEDS ORDERED: guaiFENesin 200 MG/10 ML 10 ML UNIT-DOSE CUPS PO PRN (01:41)
[2021-06-30] MEDS ORDERED: NALOXONE HCL 0.4 MG/ML VIAL IM PRN (01:41)
[2021-06-30] MEDS ORDERED: IBUPROFEN 400 MG TABLET (FP) PO PRN (01:41)
[2021-06-30] MEDS ORDERED: P-EPHED 60MG/TRIPROLIDI 2.5MG TABLET PO PRN (01:41)
[2021-06-30] MEDS ORDERED: NICOTINE 10 MG CARTRIDGE (INHALER) IH PRN (01:41)
[2021-06-30 02:20] VITALS: BMI 21.9
[2021-06-30] MEDS ORDERED: ALBUTEROL SO4 HFA INHALER IH PRN (06:18)
[2021-06-30] MEDS: PRENATAL VITAMINS W/ FOLIC ACID TABLET (FP) PO SCH (10:09)
[2021-06-30] MEDS: NICOTINE 14 MG/24 HOURS TOPICAL PATCH TD SCH (10:09)
[2021-06-30 14:47] LABS: HEMATOCRIT 32.3 % (35.4-49); HEMOGLOBIN 10.9 GM/dL (11.7-16.9); MCH 29.2 pg (25.7-33.7); MCHC 33.7 g/dl (32.0-35.9); MEAN CELL VOLUME 86.8 fl (80-96); MEAN PLT VOLUME 8.3 fl (7.5-11.1); PLATELET COUNT 227 10^3/uL (134-434); RBC 3.72 M/mm3 (4.00-5.60); RDW 14.6 % (11.9-15.9); WHITE BLOOD COUNT 7.6 K/mm3 (4.0-10.0)
[2021-06-30 14:48] LABS: ALBUMIN 3.4 g/dl (3.4-5.0); BLOOD UREA NITROGEN 26.1 mg/dL (7-18)
[2021-06-30 14:51] LABS: CREATININE 0.7 mg/dL (0.55-1.3)
[2021-06-30 14:52] LABS: BILIRUBIN,TOTAL 0.2 mg/dL (0.2-1)
[2021-06-30] MEDS: BUPRENORPHINE/NALOXONE 2 MG/0.5 MG FILM PACKET SL SCH ×2 (18:05→22:13)
[2021-06-30] MEDS: THIAMINE HCL 100 MG TABLET (FP) PO SCH (22:12)
[2021-06-30] MEDS: MELATONIN 5 MG TABLETS PO SCH (22:13)
[2021-07-01] MEDS: METHOCARBAMOL 500 MG TABLET PO PRN (05:08)
[2021-07-01] MEDS: BUPRENORPHINE/NALOXONE 2 MG/0.5 MG FILM PACKET SL SCH ×2 (10:38→22:04)
[2021-07-01] MEDS: NICOTINE 14 MG/24 HOURS TOPICAL PATCH TD SCH (10:38)
[2021-07-01] MEDS: PRENATAL VITAMINS W/ FOLIC ACID TABLET (FP) PO SCH (10:38)
[2021-07-01] MEDS: MELATONIN 5 MG TABLETS PO SCH (22:04)
[2021-07-01] MEDS: THIAMINE HCL 100 MG TABLET (FP) PO SCH (22:04)
[2021-07-02] MEDS ORDERED: diazePAM 5 MG TABLET PO PRN (08:07)
[2021-07-02] MEDS: diazePAM 5 MG TABLET PO SCH ×3 (10:43→22:19)
[2021-07-02] MEDS: PRENATAL VITAMINS W/ FOLIC ACID TABLET (FP) PO SCH (10:43)
[2021-07-02] MEDS: METHOCARBAMOL 500 MG TABLET PO PRN (10:43)
[2021-07-02] MEDS: BUPRENORPHINE/NALOXONE 4 MG/1 MG FILM PACKET SL SCH ×2 (10:45→22:19)
[2021-07-02] MEDS: NICOTINE 14 MG/24 HOURS TOPICAL PATCH TD SCH (10:47)
[2021-07-02] MEDS: MELATONIN 5 MG TABLETS PO SCH (22:18)
[2021-07-02] MEDS: THIAMINE HCL 100 MG TABLET (FP) PO SCH (22:18)
[2021-07-03] MEDS: diazePAM 5 MG TABLET PO SCH ×4 (05:43→22:31)
[2021-07-03] MEDS: PRENATAL VITAMINS W/ FOLIC ACID TABLET (FP) PO SCH (10:31)
[2021-07-03] MEDS: NICOTINE 14 MG/24 HOURS TOPICAL PATCH TD SCH (10:31)
[2021-07-03] MEDS: BUPRENORPHINE/NALOXONE 4 MG/1 MG FILM PACKET SL SCH ×2 (10:32→22:31)
[2021-07-03 12:35] LABS: HEMOGLOBIN 12.2 GM/dL (11.7-16.9); MCH 29.1 pg (25.7-33.7); MCHC 33.1 g/dl (32.0-35.9); MEAN CELL VOLUME 87.9 fl (80-96); MEAN PLT VOLUME 8.6 fl (7.5-11.1); PLATELET COUNT 285 10^3/uL (134-434); RBC 4.21 M/mm3 (4.00-5.60); RDW 14.3 % (11.9-15.9); WHITE BLOOD COUNT 4.4 K/mm3 (4.0-10.0)
[2021-07-03 12:43] LABS: BLOOD UREA NITROGEN 14.4 mg/dL (7-18)
[2021-07-03] MEDS: MELATONIN 5 MG TABLETS PO SCH (22:31)
[2021-07-03] MEDS: THIAMINE HCL 100 MG TABLET (FP) PO SCH (22:31)
[2021-07-04] MEDS: diazePAM 5 MG TABLET PO SCH ×3 (05:53→22:08)
[2021-07-04] MEDS: PRENATAL VITAMINS W/ FOLIC ACID TABLET (FP) PO SCH (10:18)
[2021-07-04] MEDS: BUPRENORPHINE/NALOXONE 4 MG/1 MG FILM PACKET SL SCH ×2 (10:18→22:08)
[2021-07-04] MEDS: NICOTINE 14 MG/24 HOURS TOPICAL PATCH TD SCH (10:19)
[2021-07-04] MEDS: MELATONIN 5 MG TABLETS PO SCH (22:08)
[2021-07-04] MEDS: THIAMINE HCL 100 MG TABLET (FP) PO SCH (22:08)
[2021-07-05] MEDS: diazePAM 5 MG TABLET PO SCH ×2 (05:24→17:38)
[2021-07-05] MEDS: PRENATAL VITAMINS W/ FOLIC ACID TABLET (FP) PO SCH (10:23)
[2021-07-05] MEDS: NICOTINE 14 MG/24 HOURS TOPICAL PATCH TD SCH (10:23)
[2021-07-05] MEDS: BUPRENORPHINE/NALOXONE 4 MG/1 MG FILM PACKET SL SCH (10:23)
[2021-07-05 13:42] VITALS: BP 114/66; PULSE 86
[2021-07-05 14:13] VITALS: TEMP 97.1
[2021-07-06] MEDS ORDERED: diazePAM 5 MG TABLET PO ONE (06:00)
== END 2021-07-05 18:27 | disposition other institution (70) | DRG 773 ==
LOC: YASAS 00:52 → UNDOADMIN 02:19 → Y3N 02:19
PROVIDERS: ADMIT Allergy & Immunology; ATTEND Allergy & Immunology
PROC: HZ2ZZZZ Detoxification Services for Substance Abuse Treatment (ICD-10-PCS; principal; 2021-06-30)
DX: F10.230 Alcohol dependence with withdrawal, uncomplicated (principal); F11.20 Opioid dependence, uncomplicated; F14.20 Cocaine dependence, uncomplicated; F12.20 Cannabis dependence, uncomplicated; F17.210 Nicotine dependence, cigarettes, uncomplicated; F19.282 Other psychoactive substance dependence with psychoactive substance-induced sleep disorder; F19.24 Other psychoactive substance dependence with psychoactive substance-induced mood disorder; F25.9 Schizoaffective disorder, unspecified; G47.00 Insomnia, unspecified; I10 Essential (primary) hypertension; J45.909 Unspecified asthma, uncomplicated; Z88.0 Allergy status to penicillin; Z88.2 Allergy status to sulfonamides; Z88.8 Allergy status to other drugs, medicaments and biological substances; Z91.14 Patient's other noncompliance with medication regimen
CPT/HCPCS: 36415; 80053; 82746; 83540; 83550; 84520; 85027; 85045; 86780; C9803; U0003; U0005

== ENCOUNTER 2021-07-05 18:33 | Inpatient (IN) | payer OTHER ==
[~2021-07-05 18:33] MED LIST: ACETAMINOPHEN 325 MG TABLET (FP) PO PRN; ALBUTEROL SO4 HFA INHALER IH PRN; IBUPROFEN 400 MG TABLET (FP) PO PRN; LOPERAMIDE HCL 2 MG CAPSULE PO PRN; MAG HYDROX/AL HYDROX/SIMETH 30 ML UNIT-DOSE CUP PO PRN; MAGNESIUM CITRATE 300 ML BOTTLE PO PRN; MAGNESIUM HYDROX 2400MG/30ML ORAL SUSPENSION 30 ML CUP PO PRN; NICOTINE 10 MG CARTRIDGE (INHALER) IH PRN; NICOTINE POLACRILEX 2 MG GUM BC PRN; P-EPHED 60MG/TRIPROLIDI 2.5MG TABLET PO PRN; guaiFENesin 200 MG/10 ML 10 ML UNIT-DOSE CUPS PO PRN; hydrOXYzine PAMOATE 25 MG CAPSULE (FP) PO PRN
[2021-07-05] MEDS: MELATONIN 5 MG TABLETS PO SCH (21:42)
[2021-07-05] MEDS: THIAMINE HCL 100 MG TABLET (FP) PO SCH (21:42)
[2021-07-05] MEDS: BUPRENORPHINE/NALOXONE 4 MG/1 MG FILM PACKET SL SCH (21:43)
[2021-07-06] MEDS: PRENATAL VITAMINS W/ FOLIC ACID TABLET (FP) PO SCH (10:39)
[2021-07-06] MEDS: NICOTINE 14 MG/24 HOURS TOPICAL PATCH TD SCH (10:40)
[2021-07-06] MEDS: BUPRENORPHINE/NALOXONE 4 MG/1 MG FILM PACKET SL SCH ×2 (10:40→21:04)
[2021-07-06] MEDS: THIAMINE HCL 100 MG TABLET (FP) PO SCH (21:03)
[2021-07-06] MEDS: MELATONIN 5 MG TABLETS PO SCH (21:03)
[2021-07-07 07:18] VITALS: PULSE 84; TEMP 98.6
[2021-07-07] MEDS: PRENATAL VITAMINS W/ FOLIC ACID TABLET (FP) PO SCH (09:48)
[2021-07-07] MEDS: BUPRENORPHINE/NALOXONE 4 MG/1 MG FILM PACKET SL SCH ×2 (09:49→21:28)
[2021-07-07] MEDS: NICOTINE 14 MG/24 HOURS TOPICAL PATCH TD SCH (09:49)
[2021-07-07] MEDS: THIAMINE HCL 100 MG TABLET (FP) PO SCH (21:27)
[2021-07-07] MEDS: MELATONIN 5 MG TABLETS PO SCH (21:27)
[2021-07-08 07:13] VITALS: BP 106/78
[2021-07-08] MEDS: BUPRENORPHINE/NALOXONE 4 MG/1 MG FILM PACKET SL SCH (09:53)
[2021-07-08] MEDS: NICOTINE 14 MG/24 HOURS TOPICAL PATCH TD SCH (09:55)
[2021-07-08] MEDS: PRENATAL VITAMINS W/ FOLIC ACID TABLET (FP) PO SCH (09:55)
== END 2021-07-08 17:55 | disposition home or self-care (01) | DRG 772 ==
LOC: YASAS 18:33 → Y3W 18:34
PROVIDERS: ADMIT Allergy & Immunology; ATTEND Allergy & Immunology
PROC: HZ42ZZZ Group Counseling for Substance Abuse Treatment, Cognitive-Behavioral (ICD-10-PCS; principal; 2021-07-05)
DX: F10.20 Alcohol dependence, uncomplicated (principal); F11.20 Opioid dependence, uncomplicated; F14.20 Cocaine dependence, uncomplicated; F12.20 Cannabis dependence, uncomplicated; F17.210 Nicotine dependence, cigarettes, uncomplicated; F25.9 Schizoaffective disorder, unspecified; I10 Essential (primary) hypertension; J45.909 Unspecified asthma, uncomplicated; R63.4 Abnormal weight loss; Z68.20 Body mass index [BMI] 20.0-20.9, adult; Z88.0 Allergy status to penicillin; Z88.2 Allergy status to sulfonamides; Z88.8 Allergy status to other drugs, medicaments and biological substances

== ENCOUNTER 2021-09-18 10:13 | Inpatient (IN) | payer OTHER ==
[2021-09-18] MEDS ORDERED: MAGNESIUM CITRATE 300 ML BOTTLE PO PRN (13:12)
[2021-09-18] MEDS ORDERED: ACETAMINOPHEN 325 MG TABLET (FP) PO PRN ×2 (13:12)
[2021-09-18] MEDS ORDERED: NICOTINE 10 MG CARTRIDGE (INHALER) IH PRN (13:12)
[2021-09-18] MEDS ORDERED: ONDANSETRON *ODT* 4 MG TABLET SL PRN (13:12)
[2021-09-18] MEDS ORDERED: MAG HYDROX/AL HYDROX/SIMETH 30 ML UNIT-DOSE CUP PO PRN (13:12)
[2021-09-18] MEDS ORDERED: BISMUTH SUBSALICYLATE 524 MG/30 ML PO PRN (13:12)
[2021-09-18] MEDS ORDERED: METHOCARBAMOL 500 MG TABLET PO PRN (13:12)
[2021-09-18] MEDS ORDERED: IBUPROFEN 400 MG TABLET (FP) PO PRN (13:12)
[2021-09-18] MEDS ORDERED: MAGNESIUM HYDROX 2400MG/30ML ORAL SUSPENSION 30 ML CUP PO PRN (13:12)
[2021-09-18] MEDS ORDERED: NICOTINE POLACRILEX 2 MG GUM BUC PRN (13:12)
[2021-09-18] MEDS ORDERED: MENTHOL/PHENOL 1 EACH UD MM PRN (13:12)
[2021-09-18] MEDS ORDERED: ALBUTEROL SO4 HFA INHALER IH PRN (13:15)
[2021-09-18 13:26] VITALS: BMI 20.9
[2021-09-18] MEDS ORDERED: hydrOXYzine PAMOATE 25 MG CAPSULE (FP) PO ONE (17:33)
[2021-09-18] MEDS: hydrOXYzine PAMOATE 25 MG CAPSULE (FP) PO SCH (17:36)
[2021-09-18] MEDS: MELATONIN 5 MG TABLETS PO SCH (23:59)
[2021-09-18] MEDS: TRIAMCINOLONE ACET 0.5% CREAM 15 GM TUBE TP SCH (23:59)
[2021-09-19] MEDS: FAMOTIDINE 20 MG TABLET PO SCH ×3 (00:02→23:22)
[2021-09-19] MEDS: hydrOXYzine PAMOATE 25 MG CAPSULE (FP) PO SCH ×7 (00:02→23:21)
[2021-09-19] MEDS: TRIAMCINOLONE ACET 0.5% CREAM 15 GM TUBE TP SCH ×3 (00:11→23:21)
[2021-09-19] MEDS: THIAMINE HCL 100 MG TABLET (FP) PO SCH ×2 (00:11→23:23)
[2021-09-19] MEDS: HALOPERIDOL 5 MG TABLET PO SCH ×2 (10:46→23:21)
[2021-09-19] MEDS: BENZTROPINE MESYLATE 0.5 MG TABLET (FP) PO SCH ×2 (10:46→23:22)
[2021-09-19] MEDS: PRENATAL VITAMINS W/ FOLIC ACID TABLET (FP) PO SCH (10:46)
[2021-09-19] MEDS ORDERED: diazePAM 5 MG TABLET PO PRN (11:23)
[2021-09-19 12:06] LABS: HEMATOCRIT 35.9 % (35.4-49); HEMOGLOBIN 11.5 GM/dL (11.7-16.9); MCH 27.9 pg (25.7-33.7); MCHC 32.1 g/dl (32.0-35.9); MEAN CELL VOLUME 86.9 fl (80-96); MEAN PLT VOLUME 9.3 fl (7.5-11.1); PLATELET COUNT 180 10^3/uL (134-434); RBC 4.13 M/mm3 (4.00-5.60); RDW 16.5 % (11.9-15.9); WHITE BLOOD COUNT 3.1 K/mm3 (4.0-10.0)
[2021-09-19 12:10] LABS: ALBUMIN 3.1 g/dl (3.4-5.0); BLOOD UREA NITROGEN 13.4 mg/dL (7-18); CALCIUM 8.7 mg/dL (8.5-10.1)
[2021-09-19 12:13] LABS: CREATININE 0.7 mg/dL (0.55-1.3)
[2021-09-19 12:15] LABS: BILIRUBIN,TOTAL 0.8 mg/dL (0.2-1); TOT PROT 6.4 g/dl (6.4-8.2)
[2021-09-19] MEDS: diazePAM 5 MG TABLET PO SCH ×3 (12:42→23:22)
[2021-09-19] MEDS ORDERED: POTASSIUM CHLORIDE ORAL LIQUID 20 MEQ/15 ML PO ONE (16:13)
[2021-09-19] MEDS: amLODIPine BESYLATE 5 MG TABLET (FP) PO SCH (17:39)
[2021-09-19] MEDS: MELATONIN 5 MG TABLETS PO SCH (23:21)
[2021-09-20] MEDS: diazePAM 5 MG TABLET PO SCH ×4 (06:45→22:24)
[2021-09-20] MEDS: hydrOXYzine PAMOATE 25 MG CAPSULE (FP) PO SCH ×5 (06:45→22:23)
[2021-09-20] MEDS: BENZTROPINE MESYLATE 0.5 MG TABLET (FP) PO SCH ×2 (12:08→22:24)
[2021-09-20] MEDS: HALOPERIDOL 5 MG TABLET PO SCH ×2 (12:08→22:24)
[2021-09-20] MEDS: TRIAMCINOLONE ACET 0.5% CREAM 15 GM TUBE TP SCH ×2 (12:08→22:24)
[2021-09-20] MEDS: amLODIPine BESYLATE 5 MG TABLET (FP) PO SCH (12:09)
[2021-09-20] MEDS: PRENATAL VITAMINS W/ FOLIC ACID TABLET (FP) PO SCH (12:09)
[2021-09-20] MEDS: FAMOTIDINE 20 MG TABLET PO SCH ×2 (12:09→22:24)
[2021-09-20] MEDS: MELATONIN 5 MG TABLETS PO SCH (22:23)
[2021-09-20] MEDS: THIAMINE HCL 100 MG TABLET (FP) PO SCH (22:23)
[2021-09-21] MEDS: hydrOXYzine PAMOATE 25 MG CAPSULE (FP) PO SCH ×5 (07:50→22:29)
[2021-09-21] MEDS: diazePAM 5 MG TABLET PO SCH ×2 (07:50→17:50)
[2021-09-21] MEDS: TRIAMCINOLONE ACET 0.5% CREAM 15 GM TUBE TP SCH ×2 (12:00→22:30)
[2021-09-21] MEDS: PRENATAL VITAMINS W/ FOLIC ACID TABLET (FP) PO SCH (12:37)
[2021-09-21] MEDS: FAMOTIDINE 20 MG TABLET PO SCH ×2 (12:37→22:29)
[2021-09-21] MEDS: amLODIPine BESYLATE 5 MG TABLET (FP) PO SCH (12:37)
[2021-09-21] MEDS: BENZTROPINE MESYLATE 0.5 MG TABLET (FP) PO SCH ×2 (12:37→22:29)
[2021-09-21] MEDS: HALOPERIDOL 5 MG TABLET PO SCH ×2 (12:37→22:29)
[2021-09-21] MEDS: THIAMINE HCL 100 MG TABLET (FP) PO SCH (22:29)
[2021-09-21] MEDS: MELATONIN 5 MG TABLETS PO SCH (22:30)
[2021-09-22] MEDS ORDERED: diazePAM 5 MG TABLET PO ONE (06:00)
[2021-09-22] MEDS: hydrOXYzine PAMOATE 25 MG CAPSULE (FP) PO SCH (06:05)
[2021-09-22 06:52] VITALS: TEMP 96.9
[2021-09-22 08:34] VITALS: BP 122/67; PULSE 73
== END 2021-09-22 10:14 | disposition home or self-care (01) | DRG 774 ==
LOC: YASAS 10:13 → UNDOADMIN 19:48 → Y3N 19:48
PROVIDERS: ADMIT Allergy & Immunology; ATTEND Allergy & Immunology
PROC: HZ2ZZZZ Detoxification Services for Substance Abuse Treatment (ICD-10-PCS; principal; 2021-09-18)
DX: F10.230 Alcohol dependence with withdrawal, uncomplicated (principal); F14.20 Cocaine dependence, uncomplicated; F17.210 Nicotine dependence, cigarettes, uncomplicated; F25.9 Schizoaffective disorder, unspecified; F19.24 Other psychoactive substance dependence with psychoactive substance-induced mood disorder; I10 Essential (primary) hypertension; J45.909 Unspecified asthma, uncomplicated; E87.6 Hypokalemia; E88.09 Other disorders of plasma-protein metabolism, not elsewhere classified; Z88.2 Allergy status to sulfonamides; Z88.8 Allergy status to other drugs, medicaments and biological substances; Z91.018 Allergy to other foods
CPT/HCPCS: 36415; 80053; 84132; 85027; 86780; C9803; U0003; U0005

== ENCOUNTER 2021-10-13 22:55 | Inpatient (IN) | payer OTHER ==
[2021-10-13 23:13] VITALS: BMI 22.1
[2021-10-13] MEDS ORDERED: MAGNESIUM CITRATE 300 ML BOTTLE PO PRN (23:29)
[2021-10-13] MEDS ORDERED: METHOCARBAMOL 500 MG TABLET PO PRN (23:29)
[2021-10-13] MEDS ORDERED: DICYCLOMINE HCL 10 MG CAPSULE PO PRN (23:29)
[2021-10-13] MEDS ORDERED: P-EPHED 60MG/TRIPROLIDI 2.5MG TABLET PO PRN (23:29)
[2021-10-13] MEDS ORDERED: NICOTINE 10 MG CARTRIDGE (INHALER) IH PRN (23:29)
[2021-10-13] MEDS ORDERED: MAG HYDROX/AL HYDROX/SIMETH 30 ML UNIT-DOSE CUP PO PRN (23:29)
[2021-10-13] MEDS ORDERED: MENTHOL/PHENOL 1 EACH UD MM PRN (23:29)
[2021-10-13] MEDS ORDERED: BISMUTH SUBSALICYLATE 524 MG/30 ML PO PRN (23:29)
[2021-10-13] MEDS ORDERED: IBUPROFEN 400 MG TABLET (FP) PO PRN (23:29)
[2021-10-13] MEDS ORDERED: MAGNESIUM HYDROX 2400MG/30ML ORAL SUSPENSION 30 ML CUP PO PRN (23:29)
[2021-10-13] MEDS ORDERED: hydrOXYzine PAMOATE 25 MG CAPSULE (FP) PO PRN (23:29)
[2021-10-13] MEDS ORDERED: guaiFENesin 200 MG/10 ML 10 ML UNIT-DOSE CUPS PO PRN (23:29)
[2021-10-13] MEDS ORDERED: ONDANSETRON *ODT* 4 MG TABLET SL PRN (23:29)
[2021-10-13] MEDS ORDERED: ACETAMINOPHEN 325 MG TABLET (FP) PO PRN ×2 (23:29)
[2021-10-13] MEDS ORDERED: LOPERAMIDE HCL 2 MG CAPSULE PO PRN (23:29)
[2021-10-14] MEDS ORDERED: chlordiazePOXIDE HCL 25 MG CAPSULE PO PRN (09:40)
[2021-10-14] MEDS: NICOTINE 21 MG/24 HOURS TOPICAL PATCH TD SCH (10:32)
[2021-10-14] MEDS: chlordiazePOXIDE HCL 25 MG CAPSULE PO SCH ×3 (10:32→22:36)
[2021-10-14] MEDS: PRENATAL VITAMINS W/ FOLIC ACID TABLET (FP) PO SCH (10:32)
[2021-10-14 14:45] LABS: HEMATOCRIT 31.3 % (35.4-49); HEMOGLOBIN 10.5 GM/dL (11.7-16.9); MCH 29.1 pg (25.7-33.7); MCHC 33.4 g/dl (32.0-35.9); PLATELET COUNT 156 10^3/uL (134-434); WHITE BLOOD COUNT 3.5 K/mm3 (4.0-10.0)
[2021-10-14 15:06] LABS: ALBUMIN 3.1 g/dl (3.4-5.0); BLOOD UREA NITROGEN 12.8 mg/dL (7-18); CALCIUM 8.6 mg/dL (8.5-10.1)
[2021-10-14 15:09] LABS: CREATININE 0.6 mg/dL (0.55-1.3)
[2021-10-14 15:11] LABS: BILIRUBIN,TOTAL 0.3 mg/dL (0.2-1); TOT PROT 6.3 g/dl (6.4-8.2)
[2021-10-14] MEDS: MELATONIN 5 MG TABLETS PO SCH (22:35)
[2021-10-14] MEDS: BENZTROPINE MESYLATE 1 MG TABLET PO SCH (22:35)
[2021-10-14] MEDS: HALOPERIDOL 5 MG TABLET PO SCH (22:35)
[2021-10-14] MEDS: THIAMINE HCL 100 MG TABLET (FP) PO SCH (22:36)
[2021-10-15] MEDS: chlordiazePOXIDE HCL 25 MG CAPSULE PO SCH ×4 (06:56→22:33)
[2021-10-15] MEDS: BENZTROPINE MESYLATE 1 MG TABLET PO SCH ×2 (11:23→22:32)
[2021-10-15] MEDS: HALOPERIDOL 5 MG TABLET PO SCH ×2 (11:23→22:32)
[2021-10-15] MEDS: NICOTINE 21 MG/24 HOURS TOPICAL PATCH TD SCH (11:24)
[2021-10-15] MEDS: PRENATAL VITAMINS W/ FOLIC ACID TABLET (FP) PO SCH (11:24)
[2021-10-15 16:09] LABS: SARS-CoV-2 NAA Not Detected (Not Detected)
[2021-10-15] MEDS: THIAMINE HCL 100 MG TABLET (FP) PO SCH (22:33)
[2021-10-15] MEDS: MELATONIN 5 MG TABLETS PO SCH (22:33)
[2021-10-16] MEDS: chlordiazePOXIDE HCL 25 MG CAPSULE PO SCH ×4 (08:19→23:00)
[2021-10-16] MEDS: BENZTROPINE MESYLATE 1 MG TABLET PO SCH ×2 (10:14→23:00)
[2021-10-16] MEDS: PRENATAL VITAMINS W/ FOLIC ACID TABLET (FP) PO SCH (10:15)
[2021-10-16] MEDS: HALOPERIDOL 5 MG TABLET PO SCH ×2 (10:15→23:00)
[2021-10-16] MEDS: NICOTINE 21 MG/24 HOURS TOPICAL PATCH TD SCH (10:15)
[2021-10-16] MEDS: THIAMINE HCL 100 MG TABLET (FP) PO SCH (23:00)
[2021-10-16] MEDS: MELATONIN 5 MG TABLETS PO SCH (23:01)
[2021-10-17] MEDS ORDERED: chlordiazePOXIDE HCL 10 MG CAPSULE PO PRN
[2021-10-17] MEDS: chlordiazePOXIDE HCL 10 MG CAPSULE PO SCH ×4 (07:35→22:38)
[2021-10-17] MEDS: PRENATAL VITAMINS W/ FOLIC ACID TABLET (FP) PO SCH (10:40)
[2021-10-17] MEDS: BENZTROPINE MESYLATE 1 MG TABLET PO SCH ×2 (10:40→22:38)
[2021-10-17] MEDS: NICOTINE 21 MG/24 HOURS TOPICAL PATCH TD SCH (10:40)
[2021-10-17] MEDS: HALOPERIDOL 5 MG TABLET PO SCH ×2 (10:40→22:38)
[2021-10-17] MEDS: THIAMINE HCL 100 MG TABLET (FP) PO SCH (22:38)
[2021-10-17] MEDS: MELATONIN 5 MG TABLETS PO SCH (22:38)
[2021-10-18] MEDS ORDERED: chlordiazePOXIDE HCL 10 MG CAPSULE PO SCH (05:00)
[2021-10-18 09:33] VITALS: BP 156/93; PULSE 88; TEMP 97.8
[2021-10-18] MEDS ORDERED: ALBUTEROL SO4 HFA INHALER IH PRN (09:42)
[2021-10-18] MEDS ORDERED: amLODIPine BESYLATE 5 MG TABLET (FP) PO SCH (10:00)
[2021-10-19] MEDS ORDERED: chlordiazePOXIDE HCL 10 MG CAPSULE PO ONE (05:00)
== END 2021-10-18 10:26 | disposition home or self-care (01) | DRG 774 ==
LOC: YASAS 22:55 → Y3N 23:26
PROVIDERS: ADMIT Allergy & Immunology; ATTEND Allergy & Immunology
PROC: HZ2ZZZZ Detoxification Services for Substance Abuse Treatment (ICD-10-PCS; principal; 2021-10-13)
DX: F10.230 Alcohol dependence with withdrawal, uncomplicated (principal); F14.20 Cocaine dependence, uncomplicated; F12.20 Cannabis dependence, uncomplicated; F17.210 Nicotine dependence, cigarettes, uncomplicated; F25.9 Schizoaffective disorder, unspecified; F19.24 Other psychoactive substance dependence with psychoactive substance-induced mood disorder; F42.4 Excoriation (skin-picking) disorder; D64.9 Anemia, unspecified; G47.00 Insomnia, unspecified; E46 Unspecified protein-calorie malnutrition; I10 Essential (primary) hypertension; J45.909 Unspecified asthma, uncomplicated; Z68.22 Body mass index [BMI] 22.0-22.9, adult; Z88.0 Allergy status to penicillin; Z88.2 Allergy status to sulfonamides; Z88.8 Allergy status to other drugs, medicaments and biological substances; Z91.018 Allergy to other foods; Z91.14 Patient's other noncompliance with medication regimen
CPT/HCPCS: 36415; 80053; 85027; 86780; 87811; C9803; U0003; U0005

== ENCOUNTER 2021-11-25 16:48 | Inpatient (IN) | payer OTHER ==
[2021-11-25] MEDS ORDERED: ONDANSETRON *ODT* 4 MG TABLET SL PRN (18:08)
[2021-11-25] MEDS ORDERED: BISMUTH SUBSALICYLATE 524 MG/30 ML PO PRN (18:08)
[2021-11-25] MEDS ORDERED: LOPERAMIDE HCL 2 MG CAPSULE PO PRN (18:08)
[2021-11-25] MEDS ORDERED: NICOTINE 10 MG CARTRIDGE (INHALER) IH PRN (18:08)
[2021-11-25] MEDS ORDERED: DICYCLOMINE HCL 10 MG CAPSULE PO PRN (18:08)
[2021-11-25] MEDS ORDERED: ACETAMINOPHEN 325 MG TABLET (FP) PO PRN ×2 (18:08)
[2021-11-25] MEDS ORDERED: BENZOCAINE/MENTHOL (CHLORASEPTIC ) LOZENGE MM PRN (18:08)
[2021-11-25] MEDS ORDERED: IBUPROFEN 400 MG TABLET (FP) PO PRN (18:08)
[2021-11-25] MEDS ORDERED: MAG HYDROX/AL HYDROX/SIMETH 30 ML UNIT-DOSE CUP PO PRN (18:08)
[2021-11-25] MEDS ORDERED: MAGNESIUM CITRATE 300 ML BOTTLE PO PRN (18:08)
[2021-11-25] MEDS ORDERED: METHOCARBAMOL 500 MG TABLET PO PRN (18:08)
[2021-11-25] MEDS ORDERED: MAGNESIUM HYDROX 2400MG/30ML ORAL SUSPENSION 30 ML CUP PO PRN (18:08)
[2021-11-25] MEDS ORDERED: ALBUTEROL SO4 HFA INHALER IH PRN (18:11)
[2021-11-25] MEDS ORDERED: hydrOXYzine PAMOATE 25 MG CAPSULE (FP) PO SCH (22:00)
[2021-11-25 22:50] VITALS: BMI 20.7
[2021-11-26] MEDS: MELATONIN 5 MG TABLETS PO SCH ×2 (00:45→21:05)
[2021-11-26] MEDS: THIAMINE HCL 100 MG TABLET (FP) PO SCH ×2 (00:45→21:04)
[2021-11-26] MEDS: TRIAMCINOLONE ACET 0.5% CREAM 15 GM TUBE TP SCH ×3 (02:35→21:04)
[2021-11-26] MEDS: PRENATAL VITAMINS W/ FOLIC ACID TABLET (FP) PO SCH ×2 (09:47→17:29)
[2021-11-26] MEDS: amLODIPine BESYLATE 5 MG TABLET (FP) PO SCH (09:47)
[2021-11-26] MEDS: NICOTINE 14 MG/24 HOURS TOPICAL PATCH TD SCH ×2 (09:47→17:29)
[2021-11-26] MEDS ORDERED: HALOPERIDOL 5 MG TABLET PO ONE (11:29)
[2021-11-26] MEDS ORDERED: BENZTROPINE MESYLATE 1 MG TABLET PO ONE (11:29)
[2021-11-26 12:07] LABS: HEMATOCRIT 35.3 % (35.4-49); HEMOGLOBIN 11.7 GM/dL (11.7-16.9); MCH 29.1 pg (25.7-33.7); MCHC 33.2 g/dl (32.0-35.9); MEAN CELL VOLUME 87.8 fl (80-96); MEAN PLT VOLUME 8.2 fl (7.5-11.1); PLATELET COUNT 203 10^3/uL (134-434); RBC 4.02 M/mm3 (4.00-5.60); RDW 18.1 % (11.9-15.9); WHITE BLOOD COUNT 3.1 K/mm3 (4.0-10.0)
[2021-11-26 12:23] LABS: ALBUMIN 3.2 g/dl (3.4-5.0); BLOOD UREA NITROGEN 13.6 mg/dL (7-18); CALCIUM 8.9 mg/dL (8.5-10.1)
[2021-11-26 12:27] LABS: CREATININE 0.8 mg/dL (0.55-1.3)
[2021-11-26 12:28] LABS: BILIRUBIN,TOTAL 0.8 mg/dL (0.2-1); TOT PROT 6.7 g/dl (6.4-8.2)
[2021-11-26 16:08] LABS: SARS-CoV-2 NAA Not Detected (Not Detected)
[2021-11-26] MEDS: HALOPERIDOL 5 MG TABLET PO SCH (21:04)
[2021-11-26] MEDS: BENZTROPINE MESYLATE 1 MG TABLET PO SCH (21:04)
[2021-11-27] MEDS: amLODIPine BESYLATE 5 MG TABLET (FP) PO SCH (09:50)
[2021-11-27] MEDS: HALOPERIDOL 5 MG TABLET PO SCH ×2 (09:50→22:23)
[2021-11-27] MEDS: BENZTROPINE MESYLATE 1 MG TABLET PO SCH ×2 (09:50→22:22)
[2021-11-27] MEDS: PRENATAL VITAMINS W/ FOLIC ACID TABLET (FP) PO SCH (09:51)
[2021-11-27] MEDS: hydrOXYzine PAMOATE 25 MG CAPSULE (FP) PO PRN (09:51)
[2021-11-27] MEDS: NICOTINE 14 MG/24 HOURS TOPICAL PATCH TD SCH (09:52)
[2021-11-27] MEDS: TRIAMCINOLONE ACET 0.5% CREAM 15 GM TUBE TP SCH ×2 (09:52→22:22)
[2021-11-27] MEDS: MELATONIN 5 MG TABLETS PO SCH (22:23)
[2021-11-27] MEDS: THIAMINE HCL 100 MG TABLET (FP) PO SCH (22:23)
[2021-11-28] MEDS: HALOPERIDOL 5 MG TABLET PO SCH ×2 (10:50→21:06)
[2021-11-28] MEDS: PRENATAL VITAMINS W/ FOLIC ACID TABLET (FP) PO SCH (10:50)
[2021-11-28] MEDS: TRIAMCINOLONE ACET 0.5% CREAM 15 GM TUBE TP SCH ×2 (10:50→21:07)
[2021-11-28] MEDS: amLODIPine BESYLATE 5 MG TABLET (FP) PO SCH (10:50)
[2021-11-28] MEDS: BENZTROPINE MESYLATE 1 MG TABLET PO SCH ×2 (10:50→21:06)
[2021-11-28] MEDS: NICOTINE 14 MG/24 HOURS TOPICAL PATCH TD SCH (10:51)
[2021-11-28] MEDS: MELATONIN 5 MG TABLETS PO SCH (21:06)
[2021-11-28] MEDS: THIAMINE HCL 100 MG TABLET (FP) PO SCH (21:06)
[2021-11-29] MEDS: PRENATAL VITAMINS W/ FOLIC ACID TABLET (FP) PO SCH (10:28)
[2021-11-29] MEDS: BENZTROPINE MESYLATE 1 MG TABLET PO SCH ×2 (10:28→21:01)
[2021-11-29] MEDS: HALOPERIDOL 5 MG TABLET PO SCH ×2 (10:28→21:00)
[2021-11-29] MEDS: amLODIPine BESYLATE 5 MG TABLET (FP) PO SCH ×2 (10:29→11:07)
[2021-11-29] MEDS: NICOTINE 14 MG/24 HOURS TOPICAL PATCH TD SCH (10:29)
[2021-11-29] MEDS: TRIAMCINOLONE ACET 0.5% CREAM 15 GM TUBE TP SCH ×2 (10:29→21:01)
[2021-11-29] MEDS: hydrOXYzine PAMOATE 25 MG CAPSULE (FP) PO PRN (18:49)
[2021-11-29] MEDS: THIAMINE HCL 100 MG TABLET (FP) PO SCH (21:00)
[2021-11-29] MEDS: MELATONIN 5 MG TABLETS PO SCH (21:02)
[2021-11-30] MEDS: PRENATAL VITAMINS W/ FOLIC ACID TABLET (FP) PO SCH (10:20)
[2021-11-30] MEDS: amLODIPine BESYLATE 5 MG TABLET (FP) PO SCH (10:20)
[2021-11-30] MEDS: HALOPERIDOL 5 MG TABLET PO SCH ×2 (10:20→21:08)
[2021-11-30] MEDS: BENZTROPINE MESYLATE 1 MG TABLET PO SCH ×2 (10:20→21:07)
[2021-11-30] MEDS: NICOTINE 14 MG/24 HOURS TOPICAL PATCH TD SCH (10:21)
[2021-11-30] MEDS: TRIAMCINOLONE ACET 0.5% CREAM 15 GM TUBE TP SCH ×2 (10:21→21:09)
[2021-11-30] MEDS: THIAMINE HCL 100 MG TABLET (FP) PO SCH (21:07)
[2021-11-30] MEDS: hydrOXYzine PAMOATE 25 MG CAPSULE (FP) PO PRN (21:07)
[2021-11-30] MEDS: MELATONIN 5 MG TABLETS PO SCH (21:08)
[2021-12-01] MEDS: hydrOXYzine PAMOATE 25 MG CAPSULE (FP) PO PRN (06:58)
[2021-12-01 06:59] VITALS: TEMP 98.2
[2021-12-01] MEDS: PRENATAL VITAMINS W/ FOLIC ACID TABLET (FP) PO SCH (09:33)
[2021-12-01] MEDS: HALOPERIDOL 5 MG TABLET PO SCH (09:33)
[2021-12-01] MEDS: NICOTINE 14 MG/24 HOURS TOPICAL PATCH TD SCH (09:33)
[2021-12-01] MEDS: TRIAMCINOLONE ACET 0.5% CREAM 15 GM TUBE TP SCH (09:33)
[2021-12-01] MEDS: BENZTROPINE MESYLATE 1 MG TABLET PO SCH (09:33)
[2021-12-01] MEDS: amLODIPine BESYLATE 5 MG TABLET (FP) PO SCH (09:33)
[2021-12-01] MEDS ORDERED: POTASSIUM CHLORIDE TABS 20 MEQ TABLET.ER (FP) PO ONE (12:12)
[2021-12-01 13:36] VITALS: BP 107/60; PULSE 87
== END 2021-12-01 12:55 | disposition left against medical advice (07) | DRG 770 ==
LOC: YASAS 16:48 → Y5N 11-26 08:54
PROVIDERS: ADMIT Allergy & Immunology; ATTEND Allergy & Immunology
PROC: HZ42ZZZ Group Counseling for Substance Abuse Treatment, Cognitive-Behavioral (ICD-10-PCS; principal; 2021-11-26)
DX: F10.20 Alcohol dependence, uncomplicated (principal); F14.20 Cocaine dependence, uncomplicated; F12.20 Cannabis dependence, uncomplicated; F17.210 Nicotine dependence, cigarettes, uncomplicated; F25.9 Schizoaffective disorder, unspecified; F19.24 Other psychoactive substance dependence with psychoactive substance-induced mood disorder; R25.9 Unspecified abnormal involuntary movements; F42.4 Excoriation (skin-picking) disorder; E87.6 Hypokalemia; G47.00 Insomnia, unspecified; I10 Essential (primary) hypertension; J45.909 Unspecified asthma, uncomplicated; K21.9 Gastro-esophageal reflux disease without esophagitis; R63.4 Abnormal weight loss; Z68.20 Body mass index [BMI] 20.0-20.9, adult; Z88.0 Allergy status to penicillin; Z88.2 Allergy status to sulfonamides; Z88.8 Allergy status to other drugs, medicaments and biological substances; Z91.14 Patient's other noncompliance with medication regimen
CPT/HCPCS: 36415; 80053; 85027; 86780; 87811; C9803-CS; U0003; U0005

== ENCOUNTER 2021-12-25 11:28 | Inpatient (IN) | payer OTHER ==
[2021-12-25 11:51] VITALS: BMI 20.9
[2021-12-25] MEDS ORDERED: LORazepam 1 MG TABLET PO PRN (13:27)
[2021-12-25] MEDS ORDERED: MAGNESIUM CITRATE 300 ML BOTTLE PO PRN (13:27)
[2021-12-25] MEDS ORDERED: BENZOCAINE/MENTHOL (CHLORASEPTIC ) LOZENGE MM PRN (13:27)
[2021-12-25] MEDS ORDERED: ONDANSETRON *ODT* 4 MG TABLET SL PRN (13:27)
[2021-12-25] MEDS ORDERED: BISMUTH SUBSALICYLATE 524 MG/30 ML PO PRN (13:27)
[2021-12-25] MEDS ORDERED: MAGNESIUM HYDROX 2400MG/30ML ORAL SUSPENSION 30 ML CUP PO PRN (13:27)
[2021-12-25] MEDS ORDERED: ACETAMINOPHEN 325 MG TABLET (FP) PO PRN ×2 (13:27)
[2021-12-25] MEDS ORDERED: NICOTINE POLACRILEX 2 MG GUM BUC PRN (13:27)
[2021-12-25] MEDS ORDERED: LOPERAMIDE HCL 2 MG CAPSULE PO PRN (13:27)
[2021-12-25] MEDS ORDERED: LORazepam 2 MG TABLET PO ONE (13:27)
[2021-12-25] MEDS ORDERED: METHOCARBAMOL 500 MG TABLET PO PRN (13:27)
[2021-12-25] MEDS ORDERED: MAG HYDROX/AL HYDROX/SIMETH 30 ML UNIT-DOSE CUP PO PRN (13:27)
[2021-12-25] MEDS ORDERED: NICOTINE 10 MG CARTRIDGE (INHALER) IH PRN (13:27)
[2021-12-25] MEDS ORDERED: DICYCLOMINE HCL 10 MG CAPSULE PO PRN (13:27)
[2021-12-25] MEDS ORDERED: IBUPROFEN 400 MG TABLET (FP) PO PRN (13:27)
[2021-12-25] MEDS ORDERED: COLLOIDAL OATMEAL 1 BAR EACH TP PRN (13:30)
[2021-12-25] MEDS ORDERED: ALBUTEROL SO4 HFA INHALER IH PRN (13:30)
[2021-12-25] MEDS: amLODIPine BESYLATE 5 MG TABLET (FP) PO SCH (15:00)
[2021-12-25] MEDS: hydrOXYzine PAMOATE 25 MG CAPSULE (FP) PO SCH ×3 (15:00→22:46)
[2021-12-25] MEDS: LORazepam 2 MG TABLET PO SCH ×2 (17:41→22:46)
[2021-12-25] MEDS: THIAMINE HCL 100 MG TABLET (FP) PO SCH (22:45)
[2021-12-25] MEDS: MELATONIN 5 MG TABLETS PO SCH (22:46)
[2021-12-26] MEDS: hydrOXYzine PAMOATE 25 MG CAPSULE (FP) PO SCH ×5 (05:36→23:35)
[2021-12-26] MEDS: LORazepam 2 MG TABLET PO SCH ×4 (05:36→23:34)
[2021-12-26] MEDS: amLODIPine BESYLATE 5 MG TABLET (FP) PO SCH (11:05)
[2021-12-26] MEDS: PRENATAL VITAMINS W/ FOLIC ACID TABLET (FP) PO SCH (11:07)
[2021-12-26] MEDS: BENZTROPINE MESYLATE 1 MG TABLET PO SCH (23:34)
[2021-12-26] MEDS: MELATONIN 5 MG TABLETS PO SCH (23:35)
[2021-12-26] MEDS: THIAMINE HCL 100 MG TABLET (FP) PO SCH (23:35)
[2021-12-26] MEDS: HALOPERIDOL 5 MG TABLET PO SCH (23:35)
[2021-12-27] MEDS: LORazepam 1 MG TABLET PO SCH ×4 (06:56→22:10)
[2021-12-27] MEDS: hydrOXYzine PAMOATE 25 MG CAPSULE (FP) PO SCH ×5 (06:57→22:11)
[2021-12-27] MEDS: amLODIPine BESYLATE 5 MG TABLET (FP) PO SCH (10:06)
[2021-12-27] MEDS: PRENATAL VITAMINS W/ FOLIC ACID TABLET (FP) PO SCH (10:06)
[2021-12-27 11:12] LABS: HEMOGLOBIN 12.4 GM/dL (11.7-16.9); MCH 29.3 pg (25.7-33.7); MCHC 32.6 g/dl (32.0-35.9); MEAN PLT VOLUME 8.9 fl (7.5-11.1); PLATELET COUNT 217 10^3/uL (134-434); RBC 4.22 M/mm3 (4.00-5.60); RDW 16.4 % (11.9-15.9); WHITE BLOOD COUNT 3.2 K/mm3 (4.0-10.0)
[2021-12-27 11:47] LABS: CALCIUM 8.9 mg/dL (8.5-10.1)
[2021-12-27 11:48] LABS: ALBUMIN 3.2 g/dl (3.4-5.0); BLOOD UREA NITROGEN 9.7 mg/dL (7-18)
[2021-12-27 11:51] LABS: CREATININE 0.7 mg/dL (0.55-1.3)
[2021-12-27 11:53] LABS: BILIRUBIN,TOTAL 0.3 mg/dL (0.2-1); TOT PROT 6.4 g/dl (6.4-8.2)
[2021-12-27] MEDS: BENZTROPINE MESYLATE 1 MG TABLET PO SCH (22:09)
[2021-12-27] MEDS: THIAMINE HCL 100 MG TABLET (FP) PO SCH (22:09)
[2021-12-27] MEDS: HALOPERIDOL 5 MG TABLET PO SCH (22:09)
[2021-12-27] MEDS: MELATONIN 5 MG TABLETS PO SCH (22:11)
[2021-12-28] MEDS ORDERED: LORazepam 0.5 MG TABLET PO PRN
[2021-12-28 00:09] LABS: SARS-CoV-2 NAA Not Detected (Not Detected)
[2021-12-28] MEDS: LORazepam 0.5 MG TABLET PO SCH ×4 (06:55→23:23)
[2021-12-28] MEDS: hydrOXYzine PAMOATE 25 MG CAPSULE (FP) PO SCH ×5 (06:56→23:23)
[2021-12-28] MEDS: PRENATAL VITAMINS W/ FOLIC ACID TABLET (FP) PO SCH (10:55)
[2021-12-28] MEDS: amLODIPine BESYLATE 5 MG TABLET (FP) PO SCH (10:55)
[2021-12-28] MEDS: MELATONIN 5 MG TABLETS PO SCH (23:23)
[2021-12-28] MEDS: BENZTROPINE MESYLATE 1 MG TABLET PO SCH (23:23)
[2021-12-28] MEDS: THIAMINE HCL 100 MG TABLET (FP) PO SCH (23:23)
[2021-12-28] MEDS: HALOPERIDOL 5 MG TABLET PO SCH (23:23)
[2021-12-29] MEDS ORDERED: LORazepam 0.5 MG TABLET PO ONE (05:00)
[2021-12-29] MEDS: hydrOXYzine PAMOATE 25 MG CAPSULE (FP) PO SCH ×2 (06:11→10:33)
[2021-12-29 09:42] VITALS: BP 117/63; PULSE 76; TEMP 96.8
[2021-12-29] MEDS: PRENATAL VITAMINS W/ FOLIC ACID TABLET (FP) PO SCH (10:32)
[2021-12-29] MEDS: amLODIPine BESYLATE 5 MG TABLET (FP) PO SCH (10:33)
== END 2021-12-29 11:10 | disposition home or self-care (01) | DRG 774 ==
LOC: YASAS 11:28 → Y6N 14:06
PROVIDERS: ADMIT Allergy & Immunology; ATTEND Surgery
PROC: HZ2ZZZZ Detoxification Services for Substance Abuse Treatment (ICD-10-PCS; principal; 2021-12-25)
DX: F10.230 Alcohol dependence with withdrawal, uncomplicated (principal); F14.20 Cocaine dependence, uncomplicated; F12.20 Cannabis dependence, uncomplicated; F16.10 Hallucinogen abuse, uncomplicated; F17.210 Nicotine dependence, cigarettes, uncomplicated; F25.9 Schizoaffective disorder, unspecified; F19.24 Other psychoactive substance dependence with psychoactive substance-induced mood disorder; F42.4 Excoriation (skin-picking) disorder; I10 Essential (primary) hypertension; J45.909 Unspecified asthma, uncomplicated; R63.6 Underweight; Z88.0 Allergy status to penicillin; Z88.2 Allergy status to sulfonamides; Z88.8 Allergy status to other drugs, medicaments and biological substances; Z91.018 Allergy to other foods
CPT/HCPCS: 36415; 80053; 85027; 86593; 86780; 87811; C9803-CS; U0003; U0005

== ENCOUNTER 2022-01-02 11:15 | Inpatient (IN) | payer OTHER ==
[2022-01-02] MEDS ORDERED: MAG HYDROX/AL HYDROX/SIMETH 30 ML UNIT-DOSE CUP PO PRN (13:00)
[2022-01-02] MEDS ORDERED: MAGNESIUM HYDROX 2400MG/30ML ORAL SUSPENSION 30 ML CUP PO PRN (13:00)
[2022-01-02] MEDS ORDERED: hydrOXYzine PAMOATE 25 MG CAPSULE (FP) PO PRN ×2 (13:00→13:59)
[2022-01-02] MEDS ORDERED: NICOTINE 10 MG CARTRIDGE (INHALER) IH PRN (13:00)
[2022-01-02] MEDS ORDERED: ONDANSETRON *ODT* 4 MG TABLET SL PRN (13:00)
[2022-01-02] MEDS ORDERED: MAGNESIUM CITRATE 300 ML BOTTLE PO PRN (13:00)
[2022-01-02] MEDS ORDERED: LOPERAMIDE HCL 2 MG CAPSULE PO PRN (13:00)
[2022-01-02] MEDS ORDERED: ACETAMINOPHEN 325 MG TABLET (FP) PO PRN ×2 (13:00)
[2022-01-02] MEDS ORDERED: METHOCARBAMOL 500 MG TABLET PO PRN (13:00)
[2022-01-02] MEDS ORDERED: BENZOCAINE/MENTHOL (CHLORASEPTIC ) LOZENGE MM PRN (13:00)
[2022-01-02] MEDS ORDERED: BISMUTH SUBSALICYLATE 524 MG/30 ML PO PRN (13:00)
[2022-01-02] MEDS ORDERED: IBUPROFEN 400 MG TABLET (FP) PO PRN (13:00)
[2022-01-02] MEDS ORDERED: DICYCLOMINE HCL 10 MG CAPSULE PO PRN (13:00)
[2022-01-02 13:30] VITALS: BMI 19.9
[2022-01-02] MEDS ORDERED: HALOPERIDOL 5 MG TABLET PO SCH (22:00)
[2022-01-02] MEDS ORDERED: THIAMINE HCL 100 MG TABLET (FP) PO SCH (22:00)
[2022-01-02] MEDS ORDERED: BENZTROPINE MESYLATE 1 MG TABLET PO SCH (22:00)
[2022-01-02] MEDS ORDERED: MELATONIN 5 MG TABLETS PO SCH (22:00)
[2022-01-02] MEDS: BACITRACIN 0.9 GM PACKET TP SCH (23:28)
[2022-01-03 09:11] VITALS: BP 132/77; PULSE 78; TEMP 97.5
[2022-01-03 09:55] LABS: HEMATOCRIT 37.6 % (35.4-49); HEMOGLOBIN 12.6 GM/dL (11.7-16.9); MCH 29.6 pg (25.7-33.7); MCHC 33.4 g/dl (32.0-35.9); MEAN CELL VOLUME 88.6 fl (80-96); MEAN PLT VOLUME 8.8 fl (7.5-11.1); PLATELET COUNT 223 10^3/uL (134-434); RBC 4.25 M/mm3 (4.00-5.60); RDW 15.9 % (11.9-15.9); WHITE BLOOD COUNT 2.8 K/mm3 (4.0-10.0)
[2022-01-03] MEDS ORDERED: PRENATAL VITAMINS W/ FOLIC ACID TABLET (FP) PO SCH (10:00)
[2022-01-03 10:02] LABS: ALBUMIN 3.6 g/dl (3.4-5.0); BLOOD UREA NITROGEN 14.7 mg/dL (7-18); CALCIUM 9.3 mg/dL (8.5-10.1)
[2022-01-03 10:04] LABS: CREATININE 0.8 mg/dL (0.55-1.3)
[2022-01-03 10:06] LABS: BILIRUBIN,TOTAL 0.6 mg/dL (0.2-1)
[2022-01-03] MEDS: BACITRACIN 0.9 GM PACKET TP SCH (10:51)
[2022-01-05 00:06] LABS: SARS-CoV-2 NAA Not Detected (Not Detected)
== END 2022-01-03 12:25 | disposition home or self-care (01) | DRG 774 ==
LOC: YASAS 11:15 → Y3N 13:15
PROVIDERS: ADMIT Allergy & Immunology; ATTEND Surgery
PROC: HZ2ZZZZ Detoxification Services for Substance Abuse Treatment (ICD-10-PCS; principal; 2022-01-02)
DX: F10.230 Alcohol dependence with withdrawal, uncomplicated (principal); F14.20 Cocaine dependence, uncomplicated; F12.20 Cannabis dependence, uncomplicated; F17.210 Nicotine dependence, cigarettes, uncomplicated; F25.9 Schizoaffective disorder, unspecified; F42.4 Excoriation (skin-picking) disorder; I10 Essential (primary) hypertension; J45.909 Unspecified asthma, uncomplicated; M54.50 Low back pain, unspecified; G89.29 Other chronic pain; R76.8 Other specified abnormal immunological findings in serum; Z86.19 Personal history of other infectious and parasitic diseases; Z88.0 Allergy status to penicillin; Z88.2 Allergy status to sulfonamides; Z88.8 Allergy status to other drugs, medicaments and biological substances
CPT/HCPCS: 36415; 80053; 85027; 86780; C9803-CS; U0003; U0005

== ENCOUNTER 2022-01-29 14:46 | Inpatient (IN) | payer OTHER ==
[2022-01-29 15:41] VITALS: BMI 19.9
[2022-01-29] MEDS ORDERED: MAGNESIUM CITRATE 300 ML BOTTLE PO PRN (16:16)
[2022-01-29] MEDS ORDERED: NICOTINE POLACRILEX 2 MG GUM BUC PRN (16:16)
[2022-01-29] MEDS ORDERED: IBUPROFEN 600 MG TABLET (FP) PO PRN (16:16)
[2022-01-29] MEDS ORDERED: IBUPROFEN 400 MG TABLET (FP) PO PRN (16:16)
[2022-01-29] MEDS ORDERED: ONDANSETRON *ODT* 4 MG TABLET SL PRN (16:16)
[2022-01-29] MEDS ORDERED: MAG HYDROX/AL HYDROX/SIMETH 30 ML UNIT-DOSE CUP PO PRN (16:16)
[2022-01-29] MEDS ORDERED: BISMUTH SUBSALICYLATE 524 MG/30 ML PO PRN (16:16)
[2022-01-29] MEDS ORDERED: MAGNESIUM HYDROX 2400MG/30ML ORAL SUSPENSION 30 ML CUP PO PRN (16:16)
[2022-01-29] MEDS ORDERED: DICYCLOMINE HCL 10 MG CAPSULE PO PRN (16:16)
[2022-01-29] MEDS ORDERED: ACETAMINOPHEN 325 MG TABLET (FP) PO PRN ×2 (16:16)
[2022-01-29] MEDS ORDERED: BENZOCAINE/MENTHOL (CHLORASEPTIC ) LOZENGE MM PRN (16:16)
[2022-01-29] MEDS ORDERED: MELATONIN 5 MG TABLETS PO PRN (16:16)
[2022-01-29] MEDS ORDERED: LOPERAMIDE HCL 2 MG CAPSULE PO PRN (16:16)
[2022-01-29] MEDS: amLODIPine BESYLATE 5 MG TABLET (FP) PO SCH (20:10)
[2022-01-29] MEDS: hydrOXYzine PAMOATE 25 MG CAPSULE (FP) PO PRN (23:10)
[2022-01-29] MEDS: THIAMINE HCL 100 MG TABLET (FP) PO SCH (23:11)
[2022-01-29] MEDS: METHOCARBAMOL 500 MG TABLET PO PRN (23:11)
[2022-01-29] MEDS: BACITRACIN 0.9 GM PACKET TP SCH (23:39)
[2022-01-30] MEDS: chlordiazePOXIDE HCL 25 MG CAPSULE PO SCH (01:50)
[2022-01-30] MEDS: amLODIPine BESYLATE 5 MG TABLET (FP) PO SCH (11:31)
[2022-01-30] MEDS: BACITRACIN 0.9 GM PACKET TP SCH (11:31)
[2022-01-30] MEDS: PRENATAL VITAMINS W/ FOLIC ACID TABLET (FP) PO SCH (11:31)
[2022-01-30] MEDS: hydrOXYzine PAMOATE 25 MG CAPSULE (FP) PO PRN (21:05)
[2022-01-30] MEDS: METHOCARBAMOL 500 MG TABLET PO PRN (21:05)
[2022-01-30] MEDS ORDERED: chlordiazePOXIDE HCL 25 MG CAPSULE PO PRN (22:31)
[2022-01-31] MEDS: THIAMINE HCL 100 MG TABLET (FP) PO SCH (00:35)
[2022-01-31] MEDS: BACITRACIN 0.9 GM PACKET TP SCH ×2 (00:35→13:03)
[2022-01-31] MEDS: chlordiazePOXIDE HCL 25 MG CAPSULE PO SCH ×4 (00:35→18:31)
[2022-01-31] MEDS: amLODIPine BESYLATE 5 MG TABLET (FP) PO SCH (13:04)
[2022-01-31] MEDS: PRENATAL VITAMINS W/ FOLIC ACID TABLET (FP) PO SCH (13:04)
[2022-02-01] MEDS: BACITRACIN 0.9 GM PACKET TP SCH ×3 (00:08→23:02)
[2022-02-01] MEDS: chlordiazePOXIDE HCL 25 MG CAPSULE PO SCH (00:08)
[2022-02-01] MEDS: THIAMINE HCL 100 MG TABLET (FP) PO SCH ×2 (00:08→23:02)
[2022-02-01] MEDS ORDERED: chlordiazePOXIDE HCL 25 MG CAPSULE PO SCH (05:00)
[2022-02-01] MEDS ORDERED: chlordiazePOXIDE 5 MG CAPSULE PO SCH (11:00)
[2022-02-01] MEDS: PRENATAL VITAMINS W/ FOLIC ACID TABLET (FP) PO SCH (13:12)
[2022-02-01] MEDS: amLODIPine BESYLATE 5 MG TABLET (FP) PO SCH (13:12)
[2022-02-01] MEDS: chlordiazePOXIDE 5 MG CAPSULE PO SCH ×2 (18:11→23:02)
[2022-02-02] MEDS ORDERED: chlordiazePOXIDE HCL 10 MG CAPSULE PO PRN
[2022-02-02] MEDS ORDERED: chlordiazePOXIDE HCL 10 MG CAPSULE PO SCH (05:00)
[2022-02-02] MEDS: chlordiazePOXIDE 5 MG CAPSULE PO SCH (06:14)
[2022-02-02 07:06] VITALS: TEMP 96.9
[2022-02-02 09:50] VITALS: BP 104/79; PULSE 97
[2022-02-03] MEDS ORDERED: chlordiazePOXIDE HCL 10 MG CAPSULE PO SCH (05:00)
[2022-02-04] MEDS ORDERED: chlordiazePOXIDE HCL 10 MG CAPSULE PO ONE (05:00)
== END 2022-02-02 10:03 | disposition left against medical advice (07) | DRG 770 ==
LOC: YASAS 14:46 → Y6N 16:40
PROVIDERS: ADMIT Allergy & Immunology; ATTEND Surgery
PROC: HZ2ZZZZ Detoxification Services for Substance Abuse Treatment (ICD-10-PCS; principal; 2022-01-29)
DX: F10.230 Alcohol dependence with withdrawal, uncomplicated (principal); F14.20 Cocaine dependence, uncomplicated; F12.20 Cannabis dependence, uncomplicated; F16.10 Hallucinogen abuse, uncomplicated; F17.210 Nicotine dependence, cigarettes, uncomplicated; F25.9 Schizoaffective disorder, unspecified; I10 Essential (primary) hypertension; J45.909 Unspecified asthma, uncomplicated; K21.9 Gastro-esophageal reflux disease without esophagitis; M54.59 Other low back pain; G89.29 Other chronic pain; Z88.0 Allergy status to penicillin; Z88.2 Allergy status to sulfonamides; Z88.8 Allergy status to other drugs, medicaments and biological substances; Z86.69 Personal history of other diseases of the nervous system and sense organs; Z56.0 Unemployment, unspecified
CPT/HCPCS: C9803-CS; Q0162; U0003; U0005

== ENCOUNTER 2022-02-16 21:31 | Inpatient (IN) | payer OTHER ==
[2022-02-16 22:16] VITALS: BMI 22.4
[2022-02-16] MEDS ORDERED: LOPERAMIDE HCL 2 MG CAPSULE PO PRN (22:53)
[2022-02-16] MEDS ORDERED: guaiFENesin 200 MG/10 ML 10 ML UNIT-DOSE CUPS PO PRN (22:53)
[2022-02-16] MEDS ORDERED: chlordiazePOXIDE HCL 25 MG CAPSULE PO PRN (22:53)
[2022-02-16] MEDS ORDERED: MAG HYDROX/AL HYDROX/SIMETH 30 ML UNIT-DOSE CUP PO PRN (22:53)
[2022-02-16] MEDS ORDERED: IBUPROFEN 400 MG TABLET (FP) PO PRN (22:53)
[2022-02-16] MEDS ORDERED: P-EPHED 60MG/TRIPROLIDI 2.5MG TABLET PO PRN (22:53)
[2022-02-16] MEDS ORDERED: BISMUTH SUBSALICYLATE 524 MG/30 ML PO PRN (22:53)
[2022-02-16] MEDS ORDERED: ACETAMINOPHEN 325 MG TABLET (FP) PO PRN ×2 (22:53)
[2022-02-16] MEDS ORDERED: IBUPROFEN 600 MG TABLET (FP) PO PRN (22:53)
[2022-02-16] MEDS ORDERED: MAGNESIUM HYDROX 2400MG/30ML ORAL SUSPENSION 30 ML CUP PO PRN (22:53)
[2022-02-16] MEDS ORDERED: METHOCARBAMOL 500 MG TABLET PO PRN (22:53)
[2022-02-16] MEDS ORDERED: ONDANSETRON *ODT* 4 MG TABLET SL PRN (22:53)
[2022-02-16] MEDS ORDERED: BENZOCAINE/MENTHOL (CHLORASEPTIC ) LOZENGE MM PRN (22:53)
[2022-02-16] MEDS ORDERED: DICYCLOMINE HCL 10 MG CAPSULE PO PRN (22:53)
[2022-02-16] MEDS ORDERED: hydrOXYzine PAMOATE 25 MG CAPSULE (FP) PO PRN (22:53)
[2022-02-16] MEDS ORDERED: MAGNESIUM CITRATE 300 ML BOTTLE PO PRN (22:53)
[2022-02-16] MEDS ORDERED: NICOTINE POLACRILEX 2 MG GUM BUC PRN (22:53)
[2022-02-16] MEDS: chlordiazePOXIDE HCL 25 MG CAPSULE PO SCH (23:48)
[2022-02-17] MEDS: chlordiazePOXIDE HCL 25 MG CAPSULE PO SCH ×4 (06:13→23:47)
[2022-02-17 12:21] LABS: HEMATOCRIT 36.1 % (35.4-49); HEMOGLOBIN 11.7 GM/dL (11.7-16.9); MCH 29.3 pg (25.7-33.7); MCHC 32.4 g/dl (32.0-35.9); MEAN CELL VOLUME 90.2 fl (80-96); MEAN PLT VOLUME 9.4 fl (7.5-11.1); PLATELET COUNT 249 10^3/uL (134-434); RDW 16.3 % (11.9-15.9); WHITE BLOOD COUNT 4.2 K/mm3 (4.0-10.0)
[2022-02-17 12:29] LABS: BLOOD UREA NITROGEN 16.5 mg/dL (7-18)
[2022-02-17] MEDS: NICOTINE 14 MG/24 HOURS TOPICAL PATCH TD SCH (12:29)
[2022-02-17] MEDS: PRENATAL VITAMINS W/ FOLIC ACID TABLET (FP) PO SCH (12:29)
[2022-02-17 12:31] LABS: CALCIUM 8.6 mg/dL (8.5-10.1)
[2022-02-17 12:35] LABS: CREATININE 0.7 mg/dL (0.55-1.3)
[2022-02-17 12:36] LABS: TOT PROT 6.3 g/dl (6.4-8.2)
[2022-02-17 12:37] LABS: BILIRUBIN,TOTAL 0.4 mg/dL (0.2-1)
[2022-02-17] MEDS ORDERED: MELATONIN 5 MG TABLETS PO SCH (22:00)
[2022-02-17] MEDS ORDERED: THIAMINE HCL 100 MG TABLET (FP) PO SCH (22:00)
[2022-02-18] MEDS: chlordiazePOXIDE HCL 25 MG CAPSULE PO SCH ×2 (06:35→11:11)
[2022-02-18] MEDS: PRENATAL VITAMINS W/ FOLIC ACID TABLET (FP) PO SCH (11:11)
[2022-02-18] MEDS: NICOTINE 14 MG/24 HOURS TOPICAL PATCH TD SCH (11:11)
[2022-02-18 13:03] VITALS: BP 106/70; PULSE 85; TEMP 98.1
[2022-02-19] MEDS ORDERED: chlordiazePOXIDE HCL 10 MG CAPSULE PO PRN
[2022-02-19] MEDS ORDERED: chlordiazePOXIDE HCL 10 MG CAPSULE PO SCH (05:00)
[2022-02-20] MEDS ORDERED: chlordiazePOXIDE HCL 10 MG CAPSULE PO SCH (05:00)
[2022-02-21] MEDS ORDERED: chlordiazePOXIDE HCL 10 MG CAPSULE PO ONE (05:00)
== END 2022-02-18 16:53 | disposition left against medical advice (07) | DRG 770 ==
LOC: YASAS 21:31 → Y6N 23:04
PROVIDERS: ADMIT Allergy & Immunology; ATTEND Surgery
PROC: HZ2ZZZZ Detoxification Services for Substance Abuse Treatment (ICD-10-PCS; principal; 2022-02-16)
DX: F10.230 Alcohol dependence with withdrawal, uncomplicated (principal); F14.20 Cocaine dependence, uncomplicated; F12.20 Cannabis dependence, uncomplicated; F17.210 Nicotine dependence, cigarettes, uncomplicated; F42.4 Excoriation (skin-picking) disorder; I10 Essential (primary) hypertension; J45.909 Unspecified asthma, uncomplicated; K21.9 Gastro-esophageal reflux disease without esophagitis; Z86.19 Personal history of other infectious and parasitic diseases; Z88.0 Allergy status to penicillin; Z88.1 Allergy status to other antibiotic agents; Z88.2 Allergy status to sulfonamides; Z88.8 Allergy status to other drugs, medicaments and biological substances; Z91.018 Allergy to other foods; Z62.810 Personal history of physical and sexual abuse in childhood; Z56.0 Unemployment, unspecified
CPT/HCPCS: 36415; 80053; 85027; 86780; 87811; C9803-CS; U0003; U0005

== ENCOUNTER 2022-03-24 23:41 | Inpatient (IN) | payer OTHER ==
[2022-03-25 00:31] VITALS: BMI 21.1
[2022-03-25] MEDS ORDERED: IBUPROFEN 400 MG TABLET (FP) PO PRN (01:26)
[2022-03-25] MEDS ORDERED: ACETAMINOPHEN 325 MG TABLET (FP) PO PRN ×2 (01:26)
[2022-03-25] MEDS ORDERED: IBUPROFEN 600 MG TABLET (FP) PO PRN (01:26)
[2022-03-25] MEDS ORDERED: MAGNESIUM HYDROX 2400MG/30ML ORAL SUSPENSION 30 ML CUP PO PRN (01:26)
[2022-03-25] MEDS ORDERED: ONDANSETRON *ODT* 4 MG TABLET SL PRN (01:26)
[2022-03-25] MEDS ORDERED: BISMUTH SUBSALICYLATE 524 MG/30 ML PO PRN (01:26)
[2022-03-25] MEDS ORDERED: MAGNESIUM CITRATE 300 ML BOTTLE PO PRN (01:26)
[2022-03-25] MEDS ORDERED: DICYCLOMINE HCL 10 MG CAPSULE PO PRN (01:26)
[2022-03-25] MEDS ORDERED: BENZOCAINE/MENTHOL (CHLORASEPTIC ) LOZENGE MM PRN (01:26)
[2022-03-25] MEDS ORDERED: NICOTINE 10 MG CARTRIDGE (INHALER) IH PRN (01:26)
[2022-03-25] MEDS ORDERED: LOPERAMIDE HCL 2 MG CAPSULE PO PRN (01:26)
[2022-03-25] MEDS ORDERED: METHOCARBAMOL 500 MG TABLET PO PRN (01:26)
[2022-03-25] MEDS ORDERED: MAG HYDROX/AL HYDROX/SIMETH 30 ML UNIT-DOSE CUP PO PRN (01:26)
[2022-03-25 10:51] LABS: HEMATOCRIT 31.7 % (35.4-49); HEMOGLOBIN 10.4 GM/dL (11.7-16.9); MCH 29.8 pg (25.7-33.7); MCHC 32.9 g/dl (32.0-35.9); MEAN CELL VOLUME 90.7 fl (80-96); MEAN PLT VOLUME 8.7 fl (7.5-11.1); PLATELET COUNT 180 10^3/uL (134-434); RBC 3.49 M/mm3 (4.00-5.60); RDW 17.2 % (11.9-15.9); WHITE BLOOD COUNT 3.2 K/mm3 (4.0-10.0)
[2022-03-25 11:09] LABS: CALCIUM 8.1 mg/dL (8.5-10.1)
[2022-03-25 11:10] LABS: ALBUMIN 2.8 g/dl (3.4-5.0); BLOOD UREA NITROGEN 14.6 mg/dL (7-18)
[2022-03-25 11:13] LABS: CREATININE 0.7 mg/dL (0.55-1.3)
[2022-03-25 11:15] LABS: BILIRUBIN,TOTAL 0.4 mg/dL (0.2-1); TOT PROT 5.8 g/dl (6.4-8.2)
[2022-03-25] MEDS: PRENATAL VITAMINS W/ FOLIC ACID TABLET (FP) PO SCH (11:54)
[2022-03-25] MEDS: NICOTINE 14 MG/24 HOURS TOPICAL PATCH TD SCH (11:54)
[2022-03-25] MEDS: MELATONIN 5 MG TABLETS PO SCH (23:39)
[2022-03-25] MEDS: THIAMINE HCL 100 MG TABLET (FP) PO SCH (23:39)
[2022-03-25] MEDS: HALOPERIDOL 5 MG TABLET PO SCH (23:40)
[2022-03-25] MEDS: BENZTROPINE MESYLATE 1 MG TABLET PO SCH (23:40)
[2022-03-26] MEDS ORDERED: POTASSIUM CHLORIDE TABS 20 MEQ TABLET.ER (FP) PO ONE ×2 (11:30→20:00)
[2022-03-26] MEDS: PRENATAL VITAMINS W/ FOLIC ACID TABLET (FP) PO SCH (11:35)
[2022-03-26] MEDS: NICOTINE 14 MG/24 HOURS TOPICAL PATCH TD SCH (11:35)
[2022-03-26] MEDS: HALOPERIDOL 5 MG TABLET PO SCH (22:41)
[2022-03-26] MEDS: THIAMINE HCL 100 MG TABLET (FP) PO SCH (22:41)
[2022-03-26] MEDS: MELATONIN 5 MG TABLETS PO SCH (22:41)
[2022-03-26] MEDS: BENZTROPINE MESYLATE 1 MG TABLET PO SCH (22:42)
[2022-03-27] MEDS: PRENATAL VITAMINS W/ FOLIC ACID TABLET (FP) PO SCH (10:52)
[2022-03-27] MEDS: NICOTINE 14 MG/24 HOURS TOPICAL PATCH TD SCH (10:52)
[2022-03-27] MEDS ORDERED: LORazepam 1 MG TABLET PO PRN (14:10)
[2022-03-27] MEDS: LORazepam 2 MG TABLET PO SCH ×2 (18:28→22:15)
[2022-03-27] MEDS: BENZTROPINE MESYLATE 1 MG TABLET PO SCH (22:14)
[2022-03-27] MEDS: HALOPERIDOL 5 MG TABLET PO SCH (22:14)
[2022-03-27] MEDS: THIAMINE HCL 100 MG TABLET (FP) PO SCH (22:14)
[2022-03-27] MEDS: MELATONIN 5 MG TABLETS PO SCH (22:14)
[2022-03-28] MEDS: LORazepam 2 MG TABLET PO SCH ×4 (06:20→22:49)
[2022-03-28 07:00] VITALS: RESP 18
[2022-03-28] MEDS: PRENATAL VITAMINS W/ FOLIC ACID TABLET (FP) PO SCH (10:38)
[2022-03-28] MEDS: NICOTINE 14 MG/24 HOURS TOPICAL PATCH TD SCH (10:38)
[2022-03-28] MEDS: BENZTROPINE MESYLATE 1 MG TABLET PO SCH (22:49)
[2022-03-28] MEDS: THIAMINE HCL 100 MG TABLET (FP) PO SCH (22:49)
[2022-03-28] MEDS: HALOPERIDOL 5 MG TABLET PO SCH (22:49)
[2022-03-28] MEDS: MELATONIN 5 MG TABLETS PO SCH (22:49)
[2022-03-29] MEDS: LORazepam 1 MG TABLET PO SCH ×2 (07:26→10:41)
[2022-03-29] MEDS: NICOTINE 14 MG/24 HOURS TOPICAL PATCH TD SCH (10:41)
[2022-03-29] MEDS: PRENATAL VITAMINS W/ FOLIC ACID TABLET (FP) PO SCH (10:41)
[2022-03-29 18:40] VITALS: BP 100/56; PULSE 65; TEMP 97.1
[2022-03-30] MEDS ORDERED: LORazepam 0.5 MG TABLET PO PRN
[2022-03-30] MEDS ORDERED: LORazepam 0.5 MG TABLET PO SCH (05:00)
[2022-03-31] MEDS ORDERED: LORazepam 0.5 MG TABLET PO ONE (05:00)
== END 2022-03-29 14:40 | disposition left against medical advice (07) | DRG 770 ==
LOC: YASAS 23:41 → UNDOADMIN 03-25 10:05 → Y3N 03-25 10:05
PROVIDERS: ADMIT Allergy & Immunology; ATTEND Surgery
PROC: HZ2ZZZZ Detoxification Services for Substance Abuse Treatment (ICD-10-PCS; principal; 2022-03-25)
DX: F10.230 Alcohol dependence with withdrawal, uncomplicated (principal); F14.20 Cocaine dependence, uncomplicated; F12.20 Cannabis dependence, uncomplicated; F17.210 Nicotine dependence, cigarettes, uncomplicated; F19.24 Other psychoactive substance dependence with psychoactive substance-induced mood disorder; F25.9 Schizoaffective disorder, unspecified; F32.A Depression, unspecified; I10 Essential (primary) hypertension; K21.9 Gastro-esophageal reflux disease without esophagitis; E87.6 Hypokalemia; J45.909 Unspecified asthma, uncomplicated; Z88.0 Allergy status to penicillin; Z88.2 Allergy status to sulfonamides; Z88.8 Allergy status to other drugs, medicaments and biological substances; Z91.14 Patient's other noncompliance with medication regimen; Z56.0 Unemployment, unspecified
CPT/HCPCS: 36415; 71046-TC-FY; 80053; 84132; 85027; 86780; 87811; C9803-CS; U0003; U0005

== ENCOUNTER 2022-04-30 21:12 | Inpatient (IN) | payer OTHER ==
[2022-04-30 22:01] VITALS: BMI 20.5
[2022-04-30] MEDS ORDERED: IBUPROFEN 400 MG TABLET (FP) PO PRN (22:27)
[2022-04-30] MEDS ORDERED: NICOTINE POLACRILEX 2 MG GUM BUC PRN (22:27)
[2022-04-30] MEDS ORDERED: BISMUTH SUBSALICYLATE 524 MG/30 ML PO PRN (22:27)
[2022-04-30] MEDS ORDERED: DICYCLOMINE HCL 10 MG CAPSULE PO PRN (22:27)
[2022-04-30] MEDS ORDERED: ACETAMINOPHEN 325 MG TABLET (FP) PO PRN ×2 (22:27)
[2022-04-30] MEDS ORDERED: LOPERAMIDE HCL 2 MG CAPSULE PO PRN (22:27)
[2022-04-30] MEDS ORDERED: METHOCARBAMOL 500 MG TABLET PO PRN (22:27)
[2022-04-30] MEDS ORDERED: ONDANSETRON *ODT* 4 MG TABLET SL PRN (22:27)
[2022-04-30] MEDS ORDERED: BENZOCAINE/MENTHOL (CHLORASEPTIC ) LOZENGE MM PRN (22:27)
[2022-04-30] MEDS ORDERED: MAG HYDROX/AL HYDROX/SIMETH 30 ML UNIT-DOSE CUP PO PRN (22:27)
[2022-04-30] MEDS ORDERED: MAGNESIUM HYDROX 2400MG/30ML ORAL SUSPENSION 30 ML CUP PO PRN (22:27)
[2022-04-30] MEDS ORDERED: IBUPROFEN 600 MG TABLET (FP) PO PRN (22:27)
[2022-04-30] MEDS ORDERED: MAGNESIUM CITRATE 300 ML BOTTLE PO PRN (22:27)
[2022-04-30 23:09] VITALS: RESP 16; TEMP 98.2
[2022-05-01 06:28] VITALS: BP 136/91; PULSE 68
[2022-05-01] MEDS ORDERED: PRENATAL VITAMINS W/ FOLIC ACID TABLET (FP) PO SCH (10:00)
[2022-05-01] MEDS ORDERED: NICOTINE 21 MG/24 HOURS TOPICAL PATCH TD SCH (10:00)
[2022-05-01] MEDS ORDERED: HALOPERIDOL 5 MG TABLET PO SCH (22:00)
[2022-05-01] MEDS ORDERED: THIAMINE HCL 100 MG TABLET (FP) PO SCH (22:00)
[2022-05-01] MEDS ORDERED: MELATONIN 5 MG TABLETS PO SCH (22:00)
[2022-05-01] MEDS ORDERED: BENZTROPINE MESYLATE 1 MG TABLET PO SCH (22:00)
== END 2022-05-01 12:45 | disposition home or self-care (01) | DRG 774 ==
LOC: YASAS 21:12 → Y6N 22:40 → UNDOADMIN 22:40 → UNDODISIN 05-01 12:45
PROVIDERS: ADMIT Allergy & Immunology; ATTEND Surgery
PROC: HZ2ZZZZ Detoxification Services for Substance Abuse Treatment (ICD-10-PCS; principal; 2022-04-30)
DX: F10.230 Alcohol dependence with withdrawal, uncomplicated (principal); F14.20 Cocaine dependence, uncomplicated; F16.20 Hallucinogen dependence, uncomplicated; F12.20 Cannabis dependence, uncomplicated; F17.210 Nicotine dependence, cigarettes, uncomplicated; F25.9 Schizoaffective disorder, unspecified; F19.24 Other psychoactive substance dependence with psychoactive substance-induced mood disorder; I10 Essential (primary) hypertension; Z88.0 Allergy status to penicillin; Z88.2 Allergy status to sulfonamides; Z88.8 Allergy status to other drugs, medicaments and biological substances
CPT/HCPCS: C9803-CS; U0003; U0005

== ENCOUNTER 2022-06-06 00:14 | Emergency (ER) | payer OTHER ==
[2022-06-06 00:44] VITALS: TEMP 97; BMI 23.8
[2022-06-06 07:00] LABS: BASO % 0.6 % (0-2.0); EOS % 3.9 % (0-4.5); HEMATOCRIT 34.5 % (35.4-49); HEMOGLOBIN 11.2 GM/dL (11.7-16.9); LYMPH % 16.4 % (8-40); MCH 28.9 pg (25.7-33.7); MCHC 32.3 g/dl (32.0-35.9); MEAN CELL VOLUME 89.3 fl (80-96); MEAN PLT VOLUME 8.1 fl (7.5-11.1); MONO % 7.6 % (3.8-10.2); NEUT % 71.5 % (42.8-82.8); PLATELET COUNT 224 10^3/uL (134-434); RBC 3.86 M/mm3 (4.00-5.60)
[2022-06-06 07:18] LABS: ALBUMIN 3.5 g/dl (3.4-5.0); CALCIUM 8.7 mg/dL (8.5-10.1)
[2022-06-06 07:19] LABS: BLOOD UREA NITROGEN 16.9 mg/dL (7-18)
[2022-06-06 07:22] LABS: CREATININE 0.9 mg/dL (0.55-1.3)
[2022-06-06 07:23] LABS: BILIRUBIN,TOTAL 0.5 mg/dL (0.2-1); TOT PROT 6.9 g/dl (6.4-8.2)
[2022-06-06 08:23] VITALS: BP 156/96; PULSE 76; RESP 16
== END 2022-06-06 08:25 | disposition home or self-care (01) ==
LOC: JER 00:14
DX: F10.20 Alcohol dependence, uncomplicated (principal)
CPT/HCPCS: 36415; 80053; 82962; 85025; 93005; 93010; 99285-25

== ENCOUNTER 2022-06-14 11:35 | Emergency (ER) | payer OTHER ==
[2022-06-14 12:22] VITALS: BP 134/75; PULSE 91; RESP 19; TEMP 98.1; BMI 24.0
[2022-06-14] MEDS ORDERED: BACITRACIN 15 GM TUBE TOPICAL OINTMENT ONE (13:11)
== END 2022-06-14 13:29 | disposition home or self-care (01) ==
LOC: JERFT 11:35
DX: S61.401A Unspecified open wound of right hand, initial encounter (principal); S61.402A Unspecified open wound of left hand, initial encounter; W19.XXXA Unspecified fall, initial encounter
CPT/HCPCS: 99282-25